=== PATIENT | female | born 1960 | race Caucasian/White ===

== ENCOUNTER 2020-06-01 19:58 | Emergency (ER) | payer MEDICAID ==
[~2020-06-01] VITALS: Ht 152.4 cm; Wt 72.6 kg
[~2020-06-01 19:58] MED LIST: HYDR-531 PO
[2020-06-01 20:41] VITALS: BP 168/88
[2020-06-01] MEDS ORDERED: CLINDAMYCIN HCL 150 MG CAP PO ONE (22:30)
[2020-06-01] MEDS ORDERED: HYDROcodone-ACET 10/325MG TAB PO ONE (22:30)
== END 2020-06-01 23:48 | disposition home or self-care (01) ==
LOC: ER 19:58
DX: K05.219 Aggressive periodontitis, localized, unspecified severity (principal); I12.9 Hypertensive chronic kidney disease with stage 1 through stage 4 chronic kidney disease, or unspecified chronic kidney disease; E11.22 Type 2 diabetes mellitus with diabetic chronic kidney disease; N18.9 Chronic kidney disease, unspecified; J45.909 Unspecified asthma, uncomplicated; M19.90 Unspecified osteoarthritis, unspecified site; F17.210 Nicotine dependence, cigarettes, uncomplicated

== ENCOUNTER 2020-08-03 22:26 | Emergency (ER) | payer MEDICAID ==
[~2020-08-03] VITALS: Ht 152.4 cm; Wt 72.6 kg
[2020-08-03] MEDS ORDERED: HYDROcodone-ACET 10/325MG TAB PO ONE (23:00)
[2020-08-04 00:14] LABS: Basophils # (auto) 0 10 ^3/uL (0-0.2); Basophils % (auto) 0.3 % (0.0-2.0); Eosinophils # (auto) 0.1 10 ^3/uL (0-0.8); Eosinophils % (auto) 1.6 % (0.0-7.0); Hematocrit 33.2 % (36.0-46.0); Hemoglobin 11.2 g/dL (12.2-16.2); Lymphocytes % (auto) 12.5 % (10.0-50.0); Mean Corpuscular Hemoglobin 32.3 pg (28.0-32.0); Mean Corpuscular Hgb Conc. 33.8 g/dL (32.0-36.0); Mean Corpuscular Volume 95.5 fL (80.0-100.0); Monocytes # (auto) 0.3 10 ^3/uL (0-1.3); Monocytes % (auto) 3.4 % (0.0-12.0); Neutrophils # (auto) 6.8 10 ^3/uL (1.6-8.6); Neutrophils % (auto) 82.2 % (37.0-80.0); Nucleated Red Blood Cells % 0.1 %; Platelet Count (auto) 165 10^3/uL (140-450); Red Blood Cells 3.48 10^6/uL (4.0-5.20); Red Cell Distribution Width 14.5 % (11.8-14.3); White Blood Cell 8.3 10^3/uL (4.4-10.8)
[2020-08-04 00:37] LABS: Albumin 3.4 g/dL (3.4-5.0); Calcium 8.4 mg/dL (8.5-10.1); Potassium 4.6 mmol/L (3.5-5.1)
[2020-08-04 00:39] LABS: Bilirubin, Total 0.4 mg/dL (0.2-1.0); Total Protein 7.3 g/dL (6.4-8.2)
[2020-08-04 00:49] LABS: BUN/Creatinine Ratio 6.4
[2020-08-04] MEDS ORDERED: MORPHINE SULFATE 4 MG/ML SYR/VIAL IV ONE (01:00)
[2020-08-04] MEDS ORDERED: cloNIDine HCL 0.1 MG TAB PO ONE (01:00)
[2020-08-04] MEDS ORDERED: TETANUS-DIPTH-ACEL PERTUSSIS 0.5ML SYR Tdap IM ONE (01:00)
[2020-08-04] MEDS ORDERED: InsuLIN REG 1unit/0.01ml Soln (100units/ml) IV ONE (01:00)
[2020-08-04] MEDS ORDERED: cefTRIAXone 1GM/50ML D5W 50 ML IV ONE (01:00)
[2020-08-04 02:22] VITALS: BP 191/79
== END 2020-08-04 03:27 | disposition home or self-care (01) ==
LOC: ER 22:26 → EDBD 22:26 → ER 08-04 03:27
DX: S16.1XXA Strain of muscle, fascia and tendon at neck level, initial encounter (principal); S86.812A Strain of other muscle(s) and tendon(s) at lower leg level, left leg, initial encounter; S09.8XXA Other specified injuries of head, initial encounter; J45.909 Unspecified asthma, uncomplicated; J44.9 Chronic obstructive pulmonary disease, unspecified; E11.22 Type 2 diabetes mellitus with diabetic chronic kidney disease; N18.9 Chronic kidney disease, unspecified; F17.210 Nicotine dependence, cigarettes, uncomplicated; Z79.899 Other long term (current) drug therapy; V49.59XA Passenger injured in collision with other motor vehicles in traffic accident, initial encounter; Y93.89 Activity, other specified; Y92.488 Other paved roadways as the place of occurrence of the external cause; Y99.8 Other external cause status
CPT/HCPCS: 36415; 70450; 70486; 72125; 73562; 80053; 82010; 82962; 85025; 90471; 90715; 96365; 96375; 99285; J0696; J1815; J2270

== ENCOUNTER 2021-07-04 19:35 | Inpatient (IN) | payer MEDICAID ==
[~2021-07-04] VITALS: Ht 152.4 cm; Wt 72.0 kg
[2021-07-04] MEDS ORDERED: cloNIDine HCL 0.1 MG TAB ONE (20:09)
[2021-07-04] MEDS ORDERED: cloNIDine HCL 0.1 MG TAB PO ONE (20:15)
[2021-07-04 22:14] LABS: Basophils # (auto) 0 10 ^3/uL (0-0.2); Basophils % (auto) 0.6 % (0.0-2.0); Eosinophils # (auto) 0.2 10 ^3/uL (0-0.8); Eosinophils % (auto) 2.5 % (0.0-7.0); Hemoglobin 11.6 g/dL (12.2-16.2); Lymphocytes # (auto) 0.9 10 ^3/uL (0.4-5.4); Lymphocytes % (auto) 14.6 % (10.0-50.0); Mean Corpuscular Hemoglobin 31.7 pg (28.0-32.0); Mean Corpuscular Volume 95.8 fL (80.0-100.0); Monocytes # (auto) 0.3 10 ^3/uL (0-1.3); Monocytes % (auto) 5.2 % (0.0-12.0); Neutrophils % (auto) 77.1 % (37.0-80.0); Nucleated Red Blood Cells % 0.1 %; Red Blood Cells 3.65 10^6/uL (4.0-5.20); Red Cell Distribution Width 17.3 % (11.8-14.3); White Blood Cell 6.4 10^3/uL (4.4-10.8)
[2021-07-04 22:29] LABS: Albumin 3.2 g/dL (3.4-5.0); Anion Gap 14 (5-15); Blood Urea Nitrogen 53 mg/dL (7-18); Carbon Dioxide 21 mmol/L (21-32); Chloride 103 mmol/L (98-107); Glucose 200 mg/dL (74-106); Sodium 138 mmol/L (136-145)
[2021-07-04 22:31] LABS: Alanine Aminotransferase 28 U/L (13-56); Aspartate Aminotransferase 17 U/L (15-37); GFR African American 8 mL/min; GFR Non-African American 7 mL/min; INR 1.07 (0.9-1.15); Partial Thromboplastin Time 27.3 sec (23.6-33.0)
[2021-07-04 22:36] LABS: Alkaline Phosphatase 214 U/L (45-117); Bilirubin, Total 0.5 mg/dL (0.2-1.0); Total Protein 7.5 g/dL (6.4-8.2)
[2021-07-04] MEDS ORDERED: ACETAMINOPHEN 325 MG TAB PO ONE (23:00)
[2021-07-04 23:05] LABS: Potassium 6.1 mmol/L (3.5-5.1)
[2021-07-05] MEDS ORDERED: HYDROcodone-ACET 10/325MG TAB PO ONE (02:15)
[2021-07-05 03:03] LABS: Urine Bacteria NONE SEEN /hpf (None Seen); Urine Blood 1+ /uL (Negative); Urine Hyaline Cast FEW /lpf (0 - 2); Urine Specific Gravity 1.011 (1.001-1.035); Urine WBC 23 /hpf (0 - 5); Urine WBC Clumps PRESENT /hpf (None Seen)
[2021-07-05] MEDS ORDERED: DOCUSATE SOD 100 MG CAP PO PRN (04:00)
[2021-07-05] MEDS ORDERED: ACETAMINOPHEN 325 MG TAB PO PRN (04:00)
[2021-07-05] MEDS ORDERED: SODIUM BICARBONATE 8.4% INJ 50ML SYRINGE IV ONE (04:00)
[2021-07-05] MEDS ORDERED: SODIUM ZIRCONIUM CYCL 10 GM PAK PO ONE (04:00)
[2021-07-05] MEDS ORDERED: MORPHINE SULFATE INJECTION 2 MG/ML SYRG IV PRN (04:00)
[2021-07-05] MEDS ORDERED: ONDANSETRON HCL 4 MG/2 ML VIAL IV PRN (04:00)
[2021-07-05] MEDS ORDERED: NITROGLYCERIN 0.4 MG SL TAB SL PRN (04:00)
[2021-07-05] MEDS ORDERED: DEXTROSE (50%) 50ML SYRG IV PRN (04:00)
[2021-07-05] MEDS ORDERED: hydrALAZINE HCL 20 MG/ML VL IV PRN (04:00)
[2021-07-05 05:26] LABS: Basophils # (auto) 0 10 ^3/uL (0-0.2); Basophils % (auto) 0.5 % (0.0-2.0); Eosinophils # (auto) 0.2 10 ^3/uL (0-0.8); Eosinophils % (auto) 2.7 % (0.0-7.0); Hematocrit 35.9 % (36.0-46.0); Hemoglobin 11.8 g/dL (12.2-16.2); Lymphocytes # (auto) 1.1 10 ^3/uL (0.4-5.4); Mean Corpuscular Hemoglobin 31.6 pg (28.0-32.0); Mean Corpuscular Hgb Conc. 32.7 g/dL (32.0-36.0); Mean Corpuscular Volume 96.4 fL (80.0-100.0); Monocytes # (auto) 0.4 10 ^3/uL (0-1.3); Neutrophils # (auto) 6.3 10 ^3/uL (1.6-8.6); Neutrophils % (auto) 77.8 % (37.0-80.0); Nucleated Red Blood Cells % 0.1 %; Red Blood Cells 3.73 10^6/uL (4.0-5.20)
[2021-07-05 05:57] LABS: Albumin 3.5 g/dL (3.4-5.0); BUN/Creatinine Ratio 8.7; Bilirubin, Total 0.6 mg/dL (0.2-1.0); Calcium 8.5 mg/dL (8.5-10.1)
[2021-07-05] MEDS: ALBUTEROL SULF HFA 90MCG INH 200DOSE IN SCH ×2 (06:00→13:48)
[2021-07-05] MEDS: SODIUM CHLOR 0.9% PF (SALINE LOCK) 10ML VIAL/SYR IV SCH ×3 (06:00→21:40)
[2021-07-05] MEDS: hydrALAZINE HCL 25 MG TAB PO SCH ×3 (06:02→21:31)
[2021-07-05] MEDS: ACCU-CHEK COMFORT CURVE STRIP VI SCH ×4 (06:08→21:40)
[2021-07-05] MEDS: InsuLIN REG 1unit/0.01ml Soln (100units/ml) SC SCH ×3 (06:08→17:00)
[2021-07-05 06:10] LABS: Potassium 6.4 mmol/L (3.5-5.1)
[2021-07-05 07:12] VITALS: BP 122/73
[2021-07-05] MEDS: SEVELAMER 800 MG TAB PO SCH ×3 (08:00→18:00)
[2021-07-05] MEDS: cefTRIAXone 1GM/50ML D5W 50 ML IV SCH (09:00)
[2021-07-05] MEDS: HYDROcodone-ACET 5/325MG TAB PO PRN ×2 (10:00→15:00)
[2021-07-05] MEDS: NIFEdipine ER 30 MG TAB PO SCH (10:00)
[2021-07-05] MEDS ORDERED: FAMOTIDINE (10MG/ML) 2ML VL IV SCH (10:00)
[2021-07-05] MEDS: AZITHROMYCIN 500MG/ 250ML 250 ML IV SCH ×2 (10:24→10:30)
[2021-07-05] MEDS: HEPARIN SODIUM (PORCINE) 5000 UNITS/ML 1ML VIAL SC SCH ×2 (10:24→21:34)
[2021-07-05] MEDS: B-COMPLEX W/ C & FOLIC ACID(NEPHROVITE TAB) PO SCH (10:25)
[2021-07-05] MEDS: ASCORBIC ACID 500 MG TAB PO SCH ×2 (10:25→21:30)
[2021-07-05] MEDS: FUROSEMIDE 40 MG/4 ML VIAL IV SCH (10:27)
[2021-07-05] MEDS: ZINC SULFATE 220mg CAP or TAB PO SCH (10:27)
[2021-07-05] MEDS: ASPirin 81 mg TAB PO SCH (10:27)
[2021-07-05] MEDS ORDERED: diphenhdrAMINE HCL 50 MG/1 ML VL ONE (13:09)
[2021-07-05] MEDS ORDERED: diphenhdrAMINE HCL 50 MG/1 ML VL IV PRN (13:15)
[2021-07-05] MEDS ORDERED: LISI20TA28 PO (13:37)
[2021-07-05] MEDS ORDERED: ASPI1TAB19 PO (13:37)
[2021-07-05] MEDS ORDERED: SEVE800T10 PO (13:37)
[2021-07-05] MEDS ORDERED: RIFA550T PO (13:37)
[2021-07-05] MEDS ORDERED: FURO40TA4 PO (13:37)
[2021-07-05] MEDS ORDERED: SODIUM CHL 0.9% 1000 ML BAG XX ONE (13:45)
[2021-07-05] MEDS ORDERED: FAMO-12 PO (13:47)
[2021-07-05] MEDS ORDERED: ALBU108A5 INH (13:47)
[2021-07-05] MEDS ORDERED: HYDR-4798 PO (13:47)
[2021-07-05] MEDS ORDERED: NIFE1TAB30 PO (13:47)
[2021-07-05] MEDS ORDERED: FERR325T20 PO (13:47)
[2021-07-05] MEDS ORDERED: ALOG1TAB2 PO (13:47)
[2021-07-05] MEDS ORDERED: BENZ100C97 PO (13:47)
[2021-07-05] MEDS ORDERED: CLON0.1T PO (13:47)
[2021-07-05] MEDS ORDERED: BUDE1AER4 PO (13:47)
[2021-07-05] MEDS ORDERED: DIP25C PO (13:47)
[2021-07-05] MEDS ORDERED: ALBUTEROL SULF 2.5 MG/0.5ML(0.5%) NEB SOLN NEB PRN (15:45)
[2021-07-05 17:28] VITALS: BP 165/105
[2021-07-05 22:00] VITALS: BP 168/72
[2021-07-05] MEDS ORDERED: InsuLIN REG 1unit/0.01ml Soln (100units/ml) SC SCH (22:00)
[2021-07-06 05:00] VITALS: BP 174/69
[2021-07-06] MEDS: hydrALAZINE HCL 25 MG TAB PO SCH (05:27)
[2021-07-06] MEDS: HYDROcodone-ACET 5/325MG TAB PO PRN (05:27)
[2021-07-06] MEDS: SODIUM CHLOR 0.9% PF (SALINE LOCK) 10ML VIAL/SYR IV SCH (05:28)
[2021-07-06 06:37] LABS: Albumin 3.1 g/dL (3.4-5.0); Calcium 8.1 mg/dL (8.5-10.1); Magnesium 2.4 mg/dL (1.6-2.6); Potassium 4.7 mmol/L (3.5-5.1)
[2021-07-06 06:42] LABS: BUN/Creatinine Ratio 6.3; Bilirubin, Total 0.7 mg/dL (0.2-1.0); Total Protein 7.6 g/dL (6.4-8.2)
[2021-07-06 07:03] LABS: Basophils # (auto) 0 10 ^3/uL (0-0.2); Basophils % (auto) 0.4 % (0.0-2.0); Eosinophils # (auto) 0.1 10 ^3/uL (0-0.8); Eosinophils % (auto) 2.1 % (0.0-7.0); Hematocrit 37.9 % (36.0-46.0); Hemoglobin 12.3 g/dL (12.2-16.2); Lymphocytes # (auto) 0.7 10 ^3/uL (0.4-5.4); Lymphocytes % (auto) 9.5 % (10.0-50.0); Mean Corpuscular Hemoglobin 31.8 pg (28.0-32.0); Mean Corpuscular Hgb Conc. 32.4 g/dL (32.0-36.0); Mean Corpuscular Volume 98.2 fL (80.0-100.0); Monocytes # (auto) 0.4 10 ^3/uL (0-1.3); Neutrophils # (auto) 5.8 10 ^3/uL (1.6-8.6); Red Blood Cells 3.86 10^6/uL (4.0-5.20); Red Cell Distribution Width 17.4 % (11.8-14.3); White Blood Cell 7.1 10^3/uL (4.4-10.8)
[2021-07-06] MEDS: InsuLIN REG 1unit/0.01ml Soln (100units/ml) SC SCH (07:05)
[2021-07-06] MEDS: ACCU-CHEK COMFORT CURVE STRIP VI SCH (07:10)
[2021-07-06] MEDS: SEVELAMER 800 MG TAB PO SCH (08:47)
[2021-07-06 09:00] VITALS: BP 162/75
[2021-07-06] MEDS ORDERED: LEVO750T64 PO (09:36)
[2021-07-06] MEDS ORDERED: FAMOTIDINE (10MG/ML) 2ML VL IV SCH (10:00)
[2021-07-06] MEDS: ASCORBIC ACID 500 MG TAB PO SCH (10:32)
[2021-07-06] MEDS: AZITHROMYCIN 500MG/ 250ML 250 ML IV SCH (10:33)
[2021-07-06] MEDS: ZINC SULFATE 220mg CAP or TAB PO SCH (10:33)
[2021-07-06] MEDS: B-COMPLEX W/ C & FOLIC ACID(NEPHROVITE TAB) PO SCH (10:33)
[2021-07-06] MEDS: ASPirin 81 mg TAB PO SCH (10:33)
[2021-07-06] MEDS: cefTRIAXone 1GM/50ML D5W 50 ML IV SCH (10:34)
[2021-07-06] MEDS: NIFEdipine ER 30 MG TAB PO SCH (10:35)
[2021-07-06] MEDS: FUROSEMIDE 40 MG/4 ML VIAL IV SCH (10:35)
[2021-07-06] MEDS: HEPARIN SODIUM (PORCINE) 5000 UNITS/ML 1ML VIAL SC SCH (10:38)
[2021-07-06 10:53] VITALS: BP 162/73
== END 2021-07-06 11:50 | disposition home or self-care (01) | DRG 425 ==
LOC: EDBD 19:35 → ER 19:35 → TELE 07-05 04:02 → TELE-CENTR 07-05 16:58
PROVIDERS: ADMIT Nurse Practitioner Family; ATTEND Internal Medicine Pulmonary Disease
PROC: 5A1D70Z Performance of Urinary Filtration, Intermittent, Less than 6 Hours Per Day (ICD-10-PCS; principal; 2021-07-05)
DX: E87.5 Hyperkalemia (principal); J96.21 Acute and chronic respiratory failure with hypoxia; I50.31 Acute diastolic (congestive) heart failure; J18.9 Pneumonia, unspecified organism; N18.6 End stage renal disease; I12.0 Hypertensive chronic kidney disease with stage 5 chronic kidney disease or end stage renal disease; J44.0 Chronic obstructive pulmonary disease with (acute) lower respiratory infection; E11.22 Type 2 diabetes mellitus with diabetic chronic kidney disease; I13.2 Hypertensive heart and chronic kidney disease with heart failure and with stage 5 chronic kidney disease, or end stage renal disease; E87.8 Other disorders of electrolyte and fluid balance, not elsewhere classified; N39.0 Urinary tract infection, site not specified; E11.65 Type 2 diabetes mellitus with hyperglycemia; Z20.822 Contact with and (suspected) exposure to COVID-19; Z87.891 Personal history of nicotine dependence; Z99.2 Dependence on renal dialysis
CPT/HCPCS: 36415; 71045; 80053; 81001; 82962; 83036; 83735; 83880; 84132; 84484; 85025; 85379; 85610; 85730; 87086; 87426; 90935; 93005; 93306; 96365; 96375; G0378; J0696; J1815; J2405; J3490

== ENCOUNTER 2021-09-11 01:12 | Emergency (ER) | payer MEDICAID ==
[~2021-09-11] VITALS: Ht 152.4 cm; Wt 72.6 kg
[~2021-09-11 01:12] MED LIST changes: +ALBU108A5 INH; +ALOG1TAB2 PO; +ASPI1TAB19 PO; +BENZ100C97 PO; +BUDE1AER4 PO; +CLON0.1T PO; +DIP25C PO; +FAMO-12 PO; +FERR325T20 PO; +FURO40TA4 PO; +HYDR-4798 PO; -HYDR-531 PO; +LEVO750T64 PO; +LISI20TA28 PO; +NIFE1TAB30 PO; +RIFA550T PO; +SEVE800T10 PO
[2021-09-11] MEDS ORDERED: cloNIDine HCL 0.1 MG TAB PO ONE (01:30)
[2021-09-11] MEDS ORDERED: MORPHINE SULFATE INJECTION 2 MG/ML SYRG IM ONE (04:30)
[2021-09-11 04:41] VITALS: BP 155/64
== END 2021-09-11 04:48 | disposition home or self-care (01) ==
LOC: ER 01:15
DX: H61.22 Impacted cerumen, left ear (principal); E66.9 Obesity, unspecified; E11.22 Type 2 diabetes mellitus with diabetic chronic kidney disease; N18.6 End stage renal disease; J44.9 Chronic obstructive pulmonary disease, unspecified; Z68.31 Body mass index [BMI] 31.0-31.9, adult; Z87.891 Personal history of nicotine dependence; Z79.82 Long term (current) use of aspirin; Z79.899 Other long term (current) drug therapy; Z79.2 Long term (current) use of antibiotics
CPT/HCPCS: 69209; 96372; 99283; J2270

== ENCOUNTER 2022-03-15 01:47 | Inpatient (IN) | payer MEDICAID ==
[2022-03-15] VITALS (21 sets, daily range): BP systolic 86–252; BP diastolic 19–168
[~2022-03-15] VITALS: Ht 152.4 cm; Wt 48.6 kg
[2022-03-15 04:18] LABS: Potassium 3.9 mmol/L (3.5-5.1)
[2022-03-15 04:20] LABS: Basophils # (auto) 0 10 ^3/uL (0-0.2); Basophils % (auto) 0.6 % (0.0-2.0); Eosinophils # (auto) 0.1 10 ^3/uL (0-0.8); Eosinophils % (auto) 1.2 % (0.0-7.0); Hemoglobin 7.6 g/dL (12.2-16.2); Monocytes # (auto) 0.3 10 ^3/uL (0-1.3); Neutrophils # (auto) 6.4 10 ^3/uL (1.6-8.6)
[2022-03-15 04:22] LABS: Hematocrit 22.6 % (36.0-46.0); Lymphocytes # (auto) 1.1 10 ^3/uL (0.4-5.4); Lymphocytes % (auto) 13.3 % (10.0-50.0); Mean Corpuscular Hemoglobin 31.1 pg (28.0-32.0); Mean Corpuscular Hgb Conc. 33.5 g/dL (32.0-36.0); Mean Corpuscular Volume 92.8 fL (80.0-100.0); Monocytes % (auto) 3.6 % (0.0-12.0); Neutrophils % (auto) 81.3 % (37.0-80.0); Red Blood Cells 2.43 10^6/uL (4.0-5.20); White Blood Cell 7.9 10^3/uL (4.4-10.8)
[2022-03-15 04:26] LABS: Albumin 2.6 g/dL (3.4-5.0); BUN/Creatinine Ratio 4.3; Bilirubin, Total 0.5 mg/dL (0.2-1.0); Calcium 7.8 mg/dL (8.5-10.1); Magnesium 2.3 mg/dL (1.6-2.6); Phosphorus 3.8 mg/dL (2.5-4.90); Total Protein 6.6 g/dL (6.4-8.2)
[2022-03-15] MEDS ORDERED: InsuLIN REG 1unit/0.01ml Soln (100units/ml) IV STA (05:51)
[2022-03-15] MEDS ORDERED: InsuLIN REG 1unit/0.01ml Soln (100units/ml) IV ONE (07:00)
[2022-03-15] MEDS ORDERED: HYDROcodone-ACET 5/325MG TAB PO ONE (08:00)
[2022-03-15] MEDS ORDERED: InsuLIN REG 1unit/0.01ml Soln (100units/ml) SC ONE (08:00)
[2022-03-15] MEDS ORDERED: LABETALOL HCL 5 MG/ML 4ML SYRINGE IV ONE (08:15)
[2022-03-15] MEDS ORDERED: hydrALAZINE HCL 20 MG/ML VL IV PRN (10:15)
[2022-03-15] MEDS ORDERED: ONDANSETRON HCL 4 MG/2 ML VIAL IV PRN (10:15)
[2022-03-15] MEDS ORDERED: NICOTINE 7MG/24HR TOPICAL PATCH TD ONE (10:15)
[2022-03-15] MEDS ORDERED: DEXTROSE (50%) 50ML SYRG IV PRN (10:15)
[2022-03-15 10:32] LABS: Cholesterol 91 mg/dL (< 200); HDL Cholesterol 61 mg/dL (40-59); LDL Cholesterol 23 mg/dL (< 100); Triglycerides 70 mg/dL (< 150)
[2022-03-15] MEDS ORDERED: FUROSEMIDE 40 MG/4 ML VIAL IV ONE (11:15)
[2022-03-15] MEDS: InsuLIN REG 1unit/0.01ml Soln (100units/ml) SC SCH ×2 (12:00→17:36)
[2022-03-15] MEDS: SEVELAMER 800 MG TAB PO SCH ×2 (12:00→18:00)
[2022-03-15] MEDS: ACCU-CHEK COMFORT CURVE STRIP VI SCH ×2 (12:00→17:36)
[2022-03-15 13:12] LABS: Cholesterol 83 mg/dL (< 200)
[2022-03-15 13:15] LABS: HDL Cholesterol 65 mg/dL (40-59); LDL Cholesterol 18 mg/dL (< 100); Triglycerides 58 mg/dL (< 150)
[2022-03-15] MEDS ORDERED: PATIENTS OWN MEDICATION (Sevelamer Carbonate 2 TAB) PO SCH (14:00)
[2022-03-15] MEDS ORDERED: SUCCINYLCHOLINE CHLORIDE 20 MG/ML 10ML VIAL IV ONE (18:46)
[2022-03-15] MEDS ORDERED: ETOMIDATE (2MG/ML) 20ML VIAL IV ONE (18:46)
[2022-03-15] MEDS ORDERED: fentaNYL Drip 2500mCg/250mlNS 250 ML IV ONE (19:06)
[2022-03-15] MEDS: fentaNYL Drip 2500mCg/250mlNS 250 ML IV SCH (19:15)
[2022-03-15] MEDS: PROPOFOL 100 ML IV SCH (19:15)
[2022-03-15] MEDS: MIDAZOLAM DRIP 50 mg/50mL 50 ML IV SCH (19:15)
[2022-03-15] MEDS: NOREPINEPHRINE 8 MG/250ML KIT 250 ML IV SCH (19:55)
[2022-03-15] MEDS: FERROUS SULFATE 325mg EC TAB PO SCH (22:00)
[2022-03-15] MEDS ORDERED: PATIENTS OWN MEDICATION (Ferrous Sulfate (Ferosul) 1 TAB) PO SCH (22:00)
[2022-03-15] MEDS: HEPARIN SODIUM (PORCINE) 5000 UNITS/ML 1ML VIAL SC SCH (23:24)
[2022-03-16] VITALS (94 sets, daily range): BP systolic 60–163; BP diastolic 10–160
[2022-03-16] MEDS: PROPOFOL 100 ML IV SCH ×3 (00:13→22:28)
[2022-03-16] MEDS: ACCU-CHEK COMFORT CURVE STRIP VI SCH ×5 (00:29→23:49)
[2022-03-16] MEDS: InsuLIN REG 1unit/0.01ml Soln (100units/ml) SC SCH ×4 (00:49→18:26)
[2022-03-16 03:48] LABS: Basophils # (auto) 0.1 10 ^3/uL (0-0.2); Eosinophils # (auto) 0.3 10 ^3/uL (0-0.8); Hematocrit 21.3 % (36.0-46.0)
[2022-03-16 03:50] LABS: Basophils % (auto) 0.9 % (0.0-2.0); Hemoglobin 7.5 g/dL (12.2-16.2); Mean Corpuscular Hemoglobin 31.4 pg (28.0-32.0); Mean Corpuscular Volume 89.6 fL (80.0-100.0); Monocytes # (auto) 0.5 10 ^3/uL (0-1.3); Monocytes % (auto) 4.2 % (0.0-12.0); Neutrophils # (auto) 9.1 10 ^3/uL (1.6-8.6); Neutrophils % (auto) 69.9 % (37.0-80.0); Red Blood Cells 2.38 10^6/uL (4.0-5.20); Red Cell Distribution Width 13.8 % (11.8-14.3)
[2022-03-16 04:12] LABS: Potassium 3.1 mmol/L (3.5-5.1)
[2022-03-16 04:18] LABS: Albumin 2.2 g/dL (3.4-5.0); BUN/Creatinine Ratio 4.7; Bilirubin, Total 0.4 mg/dL (0.2-1.0); Calcium 7.6 mg/dL (8.5-10.1); Total Protein 6.1 g/dL (6.4-8.2)
[2022-03-16] MEDS: SEVELAMER 800 MG TAB PO SCH ×3 (08:09→18:06)
[2022-03-16] MEDS: NICOTINE 7MG/24HR TOPICAL PATCH TD SCH (10:00)
[2022-03-16] MEDS: NIFEdipine ER 30 MG TAB PO SCH (10:00)
[2022-03-16] MEDS: LISINOPRIL 20 MG TAB PO SCH (10:00)
[2022-03-16] MEDS: FUROSEMIDE 40 MG/4 ML VIAL IV SCH (10:00)
[2022-03-16] MEDS ORDERED: PATIENTS OWN MEDICATION (Nifedipine (Nifedipine Er) 1 TAB) PO SCH (10:00)
[2022-03-16] MEDS: FERROUS SULFATE 325mg EC TAB PO SCH ×2 (10:25→22:29)
[2022-03-16] MEDS: HEPARIN SODIUM (PORCINE) 5000 UNITS/ML 1ML VIAL SC SCH ×2 (10:26→22:29)
[2022-03-16] MEDS ORDERED: VANCOMYCIN PER PHARMACY 0 MG IV SCH (10:45)
[2022-03-16] MEDS ORDERED: POTASSIUM EFFERVESENT TAB 25 MEQ GT ONE (10:45)
[2022-03-16] MEDS ORDERED: VANCOMYCIN 1GM/250ML 250 ML IV ONE (12:00)
[2022-03-16] MEDS: fentaNYL Drip 2500mCg/250mlNS 250 ML IV SCH ×2 (12:09→23:19)
[2022-03-16] MEDS: NOREPINEPHRINE 8 MG/250ML KIT 250 ML IV SCH ×2 (12:43→23:20)
[2022-03-16] MEDS ORDERED: ATROPINE SULF 1 MG/10ml SYR IV PRN (15:49)
[2022-03-16 16:44] LABS: INR 1.12 (0.9-1.15); Partial Thromboplastin Time 26.1 sec (23.6-33.0)
[2022-03-16] MEDS: MIDAZOLAM DRIP 50 mg/50mL 50 ML IV SCH (19:15)
[2022-03-16] MEDS: levETIRAcetam 500 MG TAB PO SCH (22:29)
[2022-03-16] MEDS: PIPERACILLIN-TAZOB 2.25GM 50 ML IV SCH (22:30)
[2022-03-17] VITALS (103 sets, daily range): BP systolic 72–168; BP diastolic -24–59
[2022-03-17 04:24] LABS: Basophils # (auto) 0.1 10 ^3/uL (0-0.2); Eosinophils # (auto) 0.3 10 ^3/uL (0-0.8); Lymphocytes # (auto) 2.3 10 ^3/uL (0.4-5.4); Red Blood Cells 2.43 10^6/uL (4.0-5.20)
[2022-03-17 04:27] LABS: Basophils % (auto) 0.7 % (0.0-2.0); Hematocrit 21.3 % (36.0-46.0); Hemoglobin 7.6 g/dL (12.2-16.2); Lymphocytes % (auto) 13.5 % (10.0-50.0); Mean Corpuscular Hemoglobin 31.4 pg (28.0-32.0); Mean Corpuscular Hgb Conc. 35.9 g/dL (32.0-36.0); Mean Corpuscular Volume 87.6 fL (80.0-100.0); Monocytes # (auto) 0.8 10 ^3/uL (0-1.3); Monocytes % (auto) 4.6 % (0.0-12.0); Neutrophils # (auto) 13.3 10 ^3/uL (1.6-8.6); Neutrophils % (auto) 79.2 % (37.0-80.0); Red Cell Distribution Width 14.2 % (11.8-14.3); White Blood Cell 16.8 10^3/uL (4.4-10.8)
[2022-03-17 04:46] LABS: Albumin 1.9 g/dL (3.4-5.0); Calcium 7.7 mg/dL (8.5-10.1); Potassium 4.2 mmol/L (3.5-5.1)
[2022-03-17 04:49] LABS: BUN/Creatinine Ratio 4.1
[2022-03-17 04:52] LABS: Bilirubin, Total 0.6 mg/dL (0.2-1.0); Total Protein 5.5 g/dL (6.4-8.2)
[2022-03-17] MEDS: InsuLIN REG 1unit/0.01ml Soln (100units/ml) SC SCH ×4 (06:00→18:00)
[2022-03-17] MEDS: ACCU-CHEK COMFORT CURVE STRIP VI SCH ×3 (07:27→18:34)
[2022-03-17] MEDS: SEVELAMER 800 MG TAB PO SCH ×3 (08:00→12:25)
[2022-03-17] MEDS: PANTOPRAZOLE 40 MG/10 ML VIAL INJ IV SCH (09:00)
[2022-03-17] MEDS: FERROUS SULFATE 325mg EC TAB PO SCH ×2 (09:01→22:01)
[2022-03-17] MEDS: levETIRAcetam 500 MG TAB PO SCH (09:01)
[2022-03-17] MEDS: PIPERACILLIN-TAZOB 2.25GM 50 ML IV SCH ×3 (09:01→22:02)
[2022-03-17] MEDS: B-COMPLEX W/ C & FOLIC ACID(NEPHROVITE TAB) PO SCH (09:02)
[2022-03-17] MEDS: HEPARIN SODIUM (PORCINE) 5000 UNITS/ML 1ML VIAL SC SCH ×2 (09:05→22:03)
[2022-03-17] MEDS ORDERED: SODIUM CHL 0.9% 1000 ML BAG XX ONE (09:30)
[2022-03-17] MEDS ORDERED: LORazepam 2MG/ML-1ML VIAL IV ONE (09:45)
[2022-03-17] MEDS: NIFEdipine ER 30 MG TAB PO SCH (10:00)
[2022-03-17] MEDS: NICOTINE 7MG/24HR TOPICAL PATCH TD SCH (10:00)
[2022-03-17] MEDS: LISINOPRIL 20 MG TAB PO SCH (10:00)
[2022-03-17] MEDS: FUROSEMIDE 40 MG/4 ML VIAL IV SCH (10:00)
[2022-03-17] MEDS: ALBUMIN 25% 100 ML IV SCH ×2 (10:34→12:26)
[2022-03-17] MEDS: NOREPINEPHRINE 8 MG/250ML KIT 250 ML IV SCH ×2 (10:37→21:45)
[2022-03-17] MEDS: PROPOFOL 100 ML IV SCH ×2 (12:15→20:06)
[2022-03-17] MEDS: fentaNYL Drip 2500mCg/250mlNS 250 ML IV SCH (12:53)
[2022-03-17] MEDS ORDERED: DEXTROSE (50%) 50ML SYRG IV PRN (14:30)
[2022-03-17] MEDS ORDERED: VANCOMYCIN 1GM/250ML 250 ML IV ONE (16:00)
[2022-03-17] MEDS: MIDAZOLAM DRIP 50 mg/50mL 50 ML IV SCH (19:15)
[2022-03-17] MEDS ORDERED: EPOETIN ALFA-EPBX 10,000 UNIT/1ML VIAL SC ONE (21:00)
[2022-03-18] VITALS (104 sets, daily range): BP systolic 92–175; BP diastolic 17–66
[2022-03-18] MEDS: fentaNYL Drip 2500mCg/250mlNS 250 ML IV SCH (02:53)
[2022-03-18 04:42] LABS: BUN/Creatinine Ratio 2.9; Calcium 8.2 mg/dL (8.5-10.1)
[2022-03-18 04:43] LABS: Basophils # (auto) 0.1 10 ^3/uL (0-0.2); Eosinophils # (auto) 0.2 10 ^3/uL (0-0.8); Monocytes # (auto) 0.7 10 ^3/uL (0-1.3)
[2022-03-18 04:47] LABS: Basophils % (auto) 0.5 % (0.0-2.0); Eosinophils % (auto) 1.1 % (0.0-7.0); Hematocrit 19.5 % (36.0-46.0); Lymphocytes # (auto) 1.1 10 ^3/uL (0.4-5.4); Lymphocytes % (auto) 5.3 % (10.0-50.0); Mean Corpuscular Hemoglobin 30.6 pg (28.0-32.0); Mean Corpuscular Hgb Conc. 33.8 g/dL (32.0-36.0); Mean Corpuscular Volume 90.5 fL (80.0-100.0); Monocytes % (auto) 3.6 % (0.0-12.0); Neutrophils # (auto) 17.8 10 ^3/uL (1.6-8.6); Neutrophils % (auto) 89.5 % (37.0-80.0); Red Blood Cells 2.15 10^6/uL (4.0-5.20); Red Cell Distribution Width 14.7 % (11.8-14.3); White Blood Cell 19.9 10^3/uL (4.4-10.8)
[2022-03-18] MEDS: PROPOFOL 100 ML IV SCH (05:02)
[2022-03-18 05:17] LABS: Hemoglobin 6.6 g/dL (12.2-16.2)
[2022-03-18] MEDS: InsuLIN REG 1unit/0.01ml Soln (100units/ml) SC SCH ×4 (06:00→18:03)
[2022-03-18] MEDS: PIPERACILLIN-TAZOB 2.25GM 50 ML IV SCH (06:02)
[2022-03-18] MEDS: ACCU-CHEK COMFORT CURVE STRIP VI SCH ×4 (06:03→18:02)
[2022-03-18] MEDS: FERROUS SULFATE 325mg EC TAB PO SCH ×2 (10:00→22:15)
[2022-03-18] MEDS: B-COMPLEX W/ C & FOLIC ACID(NEPHROVITE TAB) PO SCH (10:00)
[2022-03-18] MEDS: PANTOPRAZOLE 40 MG/10 ML VIAL INJ IV SCH (10:00)
[2022-03-18] MEDS: HEPARIN SODIUM (PORCINE) 5000 UNITS/ML 1ML VIAL SC SCH ×2 (10:02→22:16)
[2022-03-18] MEDS ORDERED: MEROPENEM 1GM IVPB 100 ML IV SCH (14:00)
[2022-03-18] MEDS: MEROPENEM 500MG IVPB 50 ML IV SCH (15:36)
[2022-03-18] MEDS: PANTOPRAZOLE 40mg/50ML NS AE 50 ML IV SCH ×3 (15:42→23:52)
[2022-03-18] MEDS: MIDAZOLAM DRIP 50 mg/50mL 50 ML IV SCH (19:15)
[2022-03-18] MEDS: NOREPINEPHRINE 8 MG/250ML KIT 250 ML IV SCH (19:57)
[2022-03-19] VITALS (89 sets, daily range): BP systolic 84–182; BP diastolic 23–111
[2022-03-19] MEDS: ACCU-CHEK COMFORT CURVE STRIP VI SCH ×4 (00:09→18:16)
[2022-03-19] MEDS: MEROPENEM 500MG IVPB 50 ML IV SCH ×2 (01:31→14:52)
[2022-03-19] MEDS: PANTOPRAZOLE 40mg/50ML NS AE 50 ML IV SCH ×4 (01:31→22:21)
[2022-03-19 04:37] LABS: Basophils # (auto) 0.1 10 ^3/uL (0-0.2); Basophils % (auto) 0.4 % (0.0-2.0); Eosinophils # (auto) 0.4 10 ^3/uL (0-0.8); Eosinophils % (auto) 2.2 % (0.0-7.0); Hematocrit 25.8 % (36.0-46.0); Lymphocytes % (auto) 5.4 % (10.0-50.0); Mean Corpuscular Hemoglobin 30.4 pg (28.0-32.0); Mean Corpuscular Hgb Conc. 34.8 g/dL (32.0-36.0); Mean Corpuscular Volume 87.5 fL (80.0-100.0); Monocytes # (auto) 0.8 10 ^3/uL (0-1.3); Monocytes % (auto) 4.2 % (0.0-12.0); Neutrophils % (auto) 87.8 % (37.0-80.0); Red Blood Cells 2.95 10^6/uL (4.0-5.20); Red Cell Distribution Width 15.6 % (11.8-14.3); White Blood Cell 18.2 10^3/uL (4.4-10.8)
[2022-03-19 04:54] LABS: % Iron Saturation 46.2 % (15-50)
[2022-03-19 04:55] LABS: Calcium 8.4 mg/dL (8.5-10.1); Potassium 3.8 mmol/L (3.5-5.1)
[2022-03-19 05:00] LABS: BUN/Creatinine Ratio 3.7; Bilirubin, Total 1.8 mg/dL (0.2-1.0); Total Protein 5.3 g/dL (6.4-8.2)
[2022-03-19] MEDS: InsuLIN REG 1unit/0.01ml Soln (100units/ml) SC SCH ×4 (05:05→18:17)
[2022-03-19 05:17] LABS: Folate (Folic Acid) 11.27 ng/mL (5.38-24)
[2022-03-19] MEDS: B-COMPLEX W/ C & FOLIC ACID(NEPHROVITE TAB) PO SCH (10:19)
[2022-03-19] MEDS: FERROUS SULFATE 325mg EC TAB PO SCH ×2 (10:19→22:21)
[2022-03-19] MEDS: HEPARIN SODIUM (PORCINE) 5000 UNITS/ML 1ML VIAL SC SCH ×2 (10:20→22:22)
[2022-03-19] MEDS ORDERED: VANCOMYCIN 1GM/250ML 250 ML IV ONE (16:00)
[2022-03-19] MEDS: MIDAZOLAM DRIP 50 mg/50mL 50 ML IV SCH (19:15)
[2022-03-19] MEDS: ACETAMINOPHEN 325 MG TAB PO PRN (22:23)
[2022-03-20] VITALS (25 sets, daily range): BP systolic 93–162; BP diastolic 40–63
[2022-03-20] MEDS: ACCU-CHEK COMFORT CURVE STRIP VI SCH ×4 (01:49→18:13)
[2022-03-20] MEDS: MEROPENEM 500MG IVPB 50 ML IV SCH ×2 (01:51→14:30)
[2022-03-20 04:17] LABS: Basophils # (auto) 0.1 10 ^3/uL (0-0.2); Basophils % (auto) 0.5 % (0.0-2.0); Eosinophils # (auto) 0.2 10 ^3/uL (0-0.8); Eosinophils % (auto) 1.6 % (0.0-7.0); Hematocrit 24.5 % (36.0-46.0); Hemoglobin 8.6 g/dL (12.2-16.2); Lymphocytes # (auto) 1.1 10 ^3/uL (0.4-5.4); Lymphocytes % (auto) 10.1 % (10.0-50.0); Mean Corpuscular Hemoglobin 30.8 pg (28.0-32.0); Mean Corpuscular Volume 88.1 fL (80.0-100.0); Monocytes # (auto) 0.4 10 ^3/uL (0-1.3); Monocytes % (auto) 3.5 % (0.0-12.0); Neutrophils # (auto) 9.4 10 ^3/uL (1.6-8.6); Neutrophils % (auto) 84.3 % (37.0-80.0); Red Blood Cells 2.78 10^6/uL (4.0-5.20); Red Cell Distribution Width 15.7 % (11.8-14.3); White Blood Cell 11.1 10^3/uL (4.4-10.8)
[2022-03-20] MEDS: ACETAMINOPHEN 325 MG TAB PO PRN ×3 (04:23→20:57)
[2022-03-20] MEDS: PANTOPRAZOLE 40mg/50ML NS AE 50 ML IV SCH ×2 (05:04)
[2022-03-20] MEDS: InsuLIN REG 1unit/0.01ml Soln (100units/ml) SC SCH ×4 (05:05→18:14)
[2022-03-20 05:37] LABS: BUN/Creatinine Ratio 3.1; Calcium 8.3 mg/dL (8.5-10.1); Magnesium 1.8 mg/dL (1.6-2.6); Potassium 3.3 mmol/L (3.5-5.1)
[2022-03-20 08:44] LABS: Hepatitis B Surface Antibody Positive (Negative)
[2022-03-20] MEDS ORDERED: MAGNESIUM SULFATE 1GM/100ML 100 ML IV ONE (09:15)
[2022-03-20 09:21] LABS: Hepatitis A Total Antibody Positive (Negative)
[2022-03-20] MEDS: POTASSIUM CHL 20MEQ/100ML 100 ML IV SCH ×2 (09:22→11:32)
[2022-03-20] MEDS: FERROUS SULFATE 325mg EC TAB PO SCH ×2 (10:00→22:22)
[2022-03-20] MEDS: B-COMPLEX W/ C & FOLIC ACID(NEPHROVITE TAB) PO SCH (10:00)
[2022-03-20] MEDS: HEPARIN SODIUM (PORCINE) 5000 UNITS/ML 1ML VIAL SC SCH ×2 (10:08→22:23)
[2022-03-20 12:54] LABS: Hepatitis C Antibody Negative (Negative)
[2022-03-20 13:09] LABS: Hepatitis C Antibody Negative (Negative)
[2022-03-20 13:10] LABS: Hepatitis A Ab IgM Negative
[2022-03-20] MEDS: HYDROcodone-ACET 5/325MG TAB PO PRN ×2 (15:51→22:22)
[2022-03-20] MEDS: FLORASTOR (S. BOULARDII) 250 MG CAP PO SCH (15:51)
[2022-03-20 16:11] LABS: Hepatitis B Core IgM Negative
[2022-03-21] VITALS (7 sets, daily range): BP systolic 94–164; BP diastolic 51–77
[2022-03-21] MEDS: ACCU-CHEK COMFORT CURVE STRIP VI SCH ×5 (00:06→23:29)
[2022-03-21] MEDS: InsuLIN REG 1unit/0.01ml Soln (100units/ml) SC SCH ×5 (00:08→23:30)
[2022-03-21] MEDS: ALBUTEROL SULF 2.5 MG/0.5ML(0.5%) NEB SOLN NEB PRN ×4 (00:33→21:18)
[2022-03-21] MEDS: MEROPENEM 500MG IVPB 50 ML IV SCH ×2 (02:46→14:12)
[2022-03-21] MEDS: ACETAMINOPHEN 325 MG TAB PO PRN ×2 (05:32→21:38)
[2022-03-21] MEDS ORDERED: SODIUM CHL 0.9% 1000 ML BAG XX ONE (07:45)
[2022-03-21 09:26] LABS: Basophils # (auto) 0.1 10 ^3/uL (0-0.2); Basophils % (auto) 0.9 % (0.0-2.0); Eosinophils # (auto) 0.2 10 ^3/uL (0-0.8); Hemoglobin 8.2 g/dL (12.2-16.2); Monocytes # (auto) 0.3 10 ^3/uL (0-1.3)
[2022-03-21 09:27] LABS: Hematocrit 23.7 % (36.0-46.0); Lymphocytes % (auto) 16.7 % (10.0-50.0); Mean Corpuscular Hgb Conc. 34.7 g/dL (32.0-36.0); Mean Corpuscular Volume 89.5 fL (80.0-100.0); Neutrophils # (auto) 4.3 10 ^3/uL (1.6-8.6); Neutrophils % (auto) 74.4 % (37.0-80.0); Nucleated Red Blood Cells % 0.1 %; Red Blood Cells 2.65 10^6/uL (4.0-5.20); Red Cell Distribution Width 15.9 % (11.8-14.3); White Blood Cell 5.8 10^3/uL (4.4-10.8)
[2022-03-21] MEDS: FLORASTOR (S. BOULARDII) 250 MG CAP PO SCH (09:32)
[2022-03-21] MEDS: FERROUS SULFATE 325mg EC TAB PO SCH ×2 (09:32→21:25)
[2022-03-21] MEDS: PANTOPRAZOLE 40 MG TAB PO SCH (09:32)
[2022-03-21] MEDS: B-COMPLEX W/ C & FOLIC ACID(NEPHROVITE TAB) PO SCH (09:32)
[2022-03-21 09:46] LABS: BUN/Creatinine Ratio 3.6; Calcium 8.1 mg/dL (8.5-10.1); Potassium 3.6 mmol/L (3.5-5.1)
[2022-03-21] MEDS: HYDROcodone-ACET 5/325MG TAB PO PRN ×2 (11:00→16:12)
[2022-03-21] MEDS: HEPARIN SODIUM (PORCINE) 5000 UNITS/ML 1ML VIAL SC SCH ×2 (16:13→21:28)
[2022-03-21] MEDS ORDERED: LORazepam 2MG/ML-1ML VIAL IV PRN (16:15)
[2022-03-21] MEDS ORDERED: VANCOMYCIN 500 MG in D5W 5% 100 ML IV ONE (17:00)
[2022-03-21] MEDS ORDERED: EPOETIN ALFA-EPBX 10,000 UNIT/1ML VIAL SC ONE (21:00)
[2022-03-21] MEDS: metroNIDAZOLE 500 MG TAB PO SCH (21:25)
[2022-03-22] MEDS: HYDROcodone-ACET 5/325MG TAB PO PRN ×3 (01:50→21:27)
[2022-03-22] MEDS: MEROPENEM 500MG IVPB 50 ML IV SCH (01:51)
[2022-03-22 04:48] VITALS: BP 149/57
[2022-03-22] MEDS: metroNIDAZOLE 500 MG TAB PO SCH ×3 (05:53→21:28)
[2022-03-22] MEDS: InsuLIN REG 1unit/0.01ml Soln (100units/ml) SC SCH ×3 (05:58→18:21)
[2022-03-22] MEDS: ACCU-CHEK COMFORT CURVE STRIP VI SCH ×3 (05:58→18:21)
[2022-03-22 07:30] VITALS: BP 131/26
[2022-03-22] MEDS: FERROUS SULFATE 325mg EC TAB PO SCH ×2 (08:38→21:28)
[2022-03-22] MEDS: B-COMPLEX W/ C & FOLIC ACID(NEPHROVITE TAB) PO SCH (08:38)
[2022-03-22] MEDS: FLORASTOR (S. BOULARDII) 250 MG CAP PO SCH (08:38)
[2022-03-22] MEDS: PANTOPRAZOLE 40 MG TAB PO SCH (08:38)
[2022-03-22] MEDS: HEPARIN SODIUM (PORCINE) 5000 UNITS/ML 1ML VIAL SC SCH ×2 (08:41→21:29)
[2022-03-22 09:00] VITALS: BP 173/66
[2022-03-22] MEDS ORDERED: VANCOMYCIN HCL 125MG/5ML ORAL SOL GT SCH (12:00)
[2022-03-22 12:23] LABS: INR 1.22 (0.9-1.15); Partial Thromboplastin Time 32.9 sec (23.6-33.0)
[2022-03-22 13:00] VITALS: BP 176/61
[2022-03-22] MEDS: ERTAPENEM SOD INJ 0.5 GM in SODIUM CHL 0.9% 50 ML IV SCH (13:17)
[2022-03-22] MEDS: VANCOMYCIN HCL 125MG/5ML ORAL SOL PO SCH ×2 (13:45→18:28)
[2022-03-22] MEDS: CHOLESTYRAMINE 4 GM POWDER PO SCH (15:21)
[2022-03-22 17:00] VITALS: BP 158/62
[2022-03-22] MEDS: hydrALAZINE HCL 20 MG/ML VL IV PRN (17:32)
[2022-03-22] MEDS ORDERED: LIDOCAINE 1% (LOCAL ANESTH.) PF 5ml SDV ID ONE (17:45)
[2022-03-22] MEDS: SODIUM CHLOR 0.9% PF (SALINE LOCK) 10ML VIAL/SYR IV SCH (21:28)
[2022-03-22 22:00] VITALS: BP 122/30
[2022-03-23] MEDS: ACCU-CHEK COMFORT CURVE STRIP VI SCH ×4 (00:22→17:42)
[2022-03-23] MEDS: VANCOMYCIN HCL 125MG/5ML ORAL SOL PO SCH ×4 (00:31→17:42)
[2022-03-23] MEDS: InsuLIN REG 1unit/0.01ml Soln (100units/ml) SC SCH ×4 (00:32→17:42)
[2022-03-23] MEDS: HYDROcodone-ACET 5/325MG TAB PO PRN ×3 (03:35→19:47)
[2022-03-23 05:00] VITALS: BP 98/70
[2022-03-23] MEDS: metroNIDAZOLE 500 MG TAB PO SCH ×3 (05:44→21:16)
[2022-03-23 09:00] VITALS: BP 121/52
[2022-03-23] MEDS: FLORASTOR (S. BOULARDII) 250 MG CAP PO SCH (10:11)
[2022-03-23] MEDS: FERROUS SULFATE 325mg EC TAB PO SCH ×2 (10:11→21:16)
[2022-03-23] MEDS: B-COMPLEX W/ C & FOLIC ACID(NEPHROVITE TAB) PO SCH (10:11)
[2022-03-23] MEDS: SODIUM CHLOR 0.9% PF (SALINE LOCK) 10ML VIAL/SYR IV SCH ×2 (10:11→21:16)
[2022-03-23] MEDS: HEPARIN SODIUM (PORCINE) 5000 UNITS/ML 1ML VIAL SC SCH ×2 (10:12→21:17)
[2022-03-23] MEDS: ERTAPENEM SOD INJ 0.5 GM in SODIUM CHL 0.9% 50 ML IV SCH (10:19)
[2022-03-23] MEDS: CHOLESTYRAMINE 4 GM POWDER PO SCH (12:04)
[2022-03-23 13:00] VITALS: BP 129/44
[2022-03-23] MEDS: Pro-Stat SF 30ml Vanilla PO SCH (16:51)
[2022-03-23] MEDS ORDERED: VANCOMYCIN 500 MG in D5W 5% 100 ML IV ONE (17:00)
[2022-03-23 17:11] VITALS: BP 107/36
[2022-03-23 22:00] VITALS: BP 150/50
[2022-03-24] VITALS (7 sets, daily range): BP systolic 138–185; BP diastolic 41–79
[2022-03-24] MEDS: ACCU-CHEK COMFORT CURVE STRIP VI SCH ×4 (00:10→18:00)
[2022-03-24] MEDS: VANCOMYCIN HCL 125MG/5ML ORAL SOL PO SCH ×4 (00:11→19:57)
[2022-03-24] MEDS: InsuLIN REG 1unit/0.01ml Soln (100units/ml) SC SCH ×4 (00:14→18:00)
[2022-03-24] MEDS: HYDROcodone-ACET 5/325MG TAB PO PRN ×3 (04:53→20:50)
[2022-03-24] MEDS: metroNIDAZOLE 500 MG TAB PO SCH ×3 (05:51→21:30)
[2022-03-24] MEDS: Pro-Stat SF 30ml Vanilla PO SCH (10:00)
[2022-03-24] MEDS: SODIUM CHLOR 0.9% PF (SALINE LOCK) 10ML VIAL/SYR IV SCH ×2 (10:00→21:42)
[2022-03-24] MEDS: ERTAPENEM SOD INJ 0.5 GM in SODIUM CHL 0.9% 50 ML IV SCH (11:41)
[2022-03-24] MEDS: FERROUS SULFATE 325mg EC TAB PO SCH ×2 (11:42→21:30)
[2022-03-24] MEDS: CHOLESTYRAMINE 4 GM POWDER PO SCH (11:42)
[2022-03-24] MEDS: FLORASTOR (S. BOULARDII) 250 MG CAP PO SCH (11:42)
[2022-03-24] MEDS: B-COMPLEX W/ C & FOLIC ACID(NEPHROVITE TAB) PO SCH (11:47)
[2022-03-24] MEDS: HEPARIN SODIUM (PORCINE) 5000 UNITS/ML 1ML VIAL SC SCH ×2 (11:51→21:32)
[2022-03-24] MEDS ORDERED: ONDANSETRON HCL 4 MG/2 ML VIAL IV PRN (13:00)
[2022-03-25] MEDS: InsuLIN REG 1unit/0.01ml Soln (100units/ml) SC SCH ×4 (00:53→18:00)
[2022-03-25] MEDS: VANCOMYCIN HCL 125MG/5ML ORAL SOL PO SCH ×4 (01:01→18:47)
[2022-03-25 05:00] VITALS: BP 154/47
[2022-03-25] MEDS: metroNIDAZOLE 500 MG TAB PO SCH ×3 (05:45→22:23)
[2022-03-25] MEDS: ACCU-CHEK COMFORT CURVE STRIP VI SCH ×4 (05:46→18:00)
[2022-03-25 08:00] VITALS: BP 145/36
[2022-03-25] MEDS: B-COMPLEX W/ C & FOLIC ACID(NEPHROVITE TAB) PO SCH (09:36)
[2022-03-25] MEDS: SODIUM CHLOR 0.9% PF (SALINE LOCK) 10ML VIAL/SYR IV SCH ×2 (09:36→22:23)
[2022-03-25] MEDS: ERTAPENEM SOD INJ 0.5 GM in SODIUM CHL 0.9% 50 ML IV SCH (09:36)
[2022-03-25] MEDS: FLORASTOR (S. BOULARDII) 250 MG CAP PO SCH (09:36)
[2022-03-25] MEDS: FERROUS SULFATE 325mg EC TAB PO SCH ×2 (09:36→22:23)
[2022-03-25] MEDS: CHOLESTYRAMINE 4 GM POWDER PO SCH (09:37)
[2022-03-25] MEDS: Pro-Stat SF 30ml Vanilla PO SCH (09:37)
[2022-03-25] MEDS: HEPARIN SODIUM (PORCINE) 5000 UNITS/ML 1ML VIAL SC SCH ×2 (09:40→22:23)
[2022-03-25] MEDS: HYDROcodone-ACET 5/325MG TAB PO PRN ×2 (09:41→18:37)
[2022-03-25 12:00] VITALS: BP 132/41
[2022-03-25 16:00] VITALS: BP 93/39
[2022-03-25 21:34] VITALS: BP 132/22
[2022-03-26] MEDS: ACCU-CHEK COMFORT CURVE STRIP VI SCH ×5 (00:22→23:22)
[2022-03-26] MEDS: VANCOMYCIN HCL 125MG/5ML ORAL SOL PO SCH ×5 (00:22→23:22)
[2022-03-26] MEDS: HYDROcodone-ACET 5/325MG TAB PO PRN ×2 (00:38→15:12)
[2022-03-26] MEDS: InsuLIN REG 1unit/0.01ml Soln (100units/ml) SC SCH ×5 (00:40→23:28)
[2022-03-26 05:20] VITALS: BP 90/30
[2022-03-26] MEDS: metroNIDAZOLE 500 MG TAB PO SCH ×3 (06:12→22:46)
[2022-03-26 09:00] VITALS: BP 146/35
[2022-03-26] MEDS ORDERED: VANC125PO PO (10:10)
[2022-03-26] MEDS: SODIUM CHLOR 0.9% PF (SALINE LOCK) 10ML VIAL/SYR IV SCH ×2 (10:14→22:45)
[2022-03-26] MEDS: FERROUS SULFATE 325mg EC TAB PO SCH ×2 (10:14→22:45)
[2022-03-26] MEDS: ERTAPENEM SOD INJ 0.5 GM in SODIUM CHL 0.9% 50 ML IV SCH (10:14)
[2022-03-26] MEDS: FLORASTOR (S. BOULARDII) 250 MG CAP PO SCH (10:14)
[2022-03-26] MEDS: B-COMPLEX W/ C & FOLIC ACID(NEPHROVITE TAB) PO SCH (10:14)
[2022-03-26] MEDS: Pro-Stat SF 30ml Vanilla PO SCH (10:16)
[2022-03-26] MEDS: HEPARIN SODIUM (PORCINE) 5000 UNITS/ML 1ML VIAL SC SCH ×2 (10:19→23:12)
[2022-03-26] MEDS: CHOLESTYRAMINE 4 GM POWDER PO SCH (12:29)
[2022-03-26 13:00] VITALS: BP 98/30
[2022-03-26 15:30] VITALS: BP 98/46
[2022-03-26 17:00] VITALS: BP 145/27
[2022-03-26 22:00] VITALS: BP 163/48
[2022-03-26] MEDS: hydrALAZINE HCL 20 MG/ML VL IV PRN (22:48)
[2022-03-27] VITALS (80 sets, daily range): BP systolic 86–180; BP diastolic 18–85
[2022-03-27] MEDS ORDERED: ETOMIDATE (2MG/ML) 20ML VIAL IV ONE ×3 (03:53→05:15)
[2022-03-27] MEDS ORDERED: SUCCINYLCHOLINE CHLORIDE 20 MG/ML 10ML VIAL IV ONE ×3 (03:54→05:15)
[2022-03-27] MEDS: MIDAZOLAM DRIP 50 mg/50mL 50 ML IV SCH (05:15)
[2022-03-27] MEDS ORDERED: MIDAZOLAM DRIP 50 mg/50mL 50 ML IV ONE (05:32)
[2022-03-27] MEDS: InsuLIN REG 1unit/0.01ml Soln (100units/ml) SC SCH ×4 (06:00→23:57)
[2022-03-27] MEDS: ACCU-CHEK COMFORT CURVE STRIP VI SCH ×4 (06:00→23:56)
[2022-03-27] MEDS ORDERED: LORazepam 2MG/ML-1ML VIAL IV ONE (07:15)
[2022-03-27 07:26] LABS: Basophils # (auto) 0 10 ^3/uL (0-0.2); Eosinophils # (auto) 0 10 ^3/uL (0-0.8); Eosinophils % (auto) 0.1 % (0.0-7.0); Hematocrit 31.5 % (36.0-46.0); Hemoglobin 10.6 g/dL (12.2-16.2); Lymphocytes # (auto) 0.4 10 ^3/uL (0.4-5.4); Lymphocytes % (auto) 3.8 % (10.0-50.0); Mean Corpuscular Hemoglobin 31.3 pg (28.0-32.0); Mean Corpuscular Hgb Conc. 33.5 g/dL (32.0-36.0); Mean Corpuscular Volume 93.4 fL (80.0-100.0); Monocytes # (auto) 0.3 10 ^3/uL (0-1.3); Monocytes % (auto) 2.5 % (0.0-12.0); Neutrophils # (auto) 9.7 10 ^3/uL (1.6-8.6); Neutrophils % (auto) 93.6 % (37.0-80.0); Red Blood Cells 3.38 10^6/uL (4.0-5.20); Red Cell Distribution Width 18.2 % (11.8-14.3); White Blood Cell 10.4 10^3/uL (4.4-10.8)
[2022-03-27 07:51] LABS: Albumin 2.4 g/dL (3.4-5.0); BUN/Creatinine Ratio 4.4; Calcium 8.2 mg/dL (8.5-10.1); Potassium 4.8 mmol/L (3.5-5.1)
[2022-03-27 07:53] LABS: Bilirubin, Total 0.6 mg/dL (0.2-1.0); Total Protein 6.7 g/dL (6.4-8.2)
[2022-03-27] MEDS ORDERED: VANCOMYCIN HCL 125MG/5ML ORAL SOL GT ONE (08:00)
[2022-03-27] MEDS ORDERED: metroNIDAZOLE 500 MG TAB GT ONE (08:00)
[2022-03-27] MEDS: Pro-Stat SF 30ml Vanilla PO SCH (10:00)
[2022-03-27] MEDS: FERROUS SULFATE 325mg EC TAB PO SCH ×2 (11:01→21:53)
[2022-03-27] MEDS: FLORASTOR (S. BOULARDII) 250 MG CAP PO SCH (11:01)
[2022-03-27] MEDS: HEPARIN SODIUM (PORCINE) 5000 UNITS/ML 1ML VIAL SC SCH ×2 (11:08→22:03)
[2022-03-27] MEDS: B-COMPLEX W/ C & FOLIC ACID(NEPHROVITE TAB) PO SCH (11:08)
[2022-03-27] MEDS: SODIUM CHLOR 0.9% PF (SALINE LOCK) 10ML VIAL/SYR IV SCH ×2 (12:09→21:54)
[2022-03-27] MEDS: VANCOMYCIN HCL 125MG/5ML ORAL SOL GT SCH ×3 (13:25→23:57)
[2022-03-27] MEDS: metroNIDAZOLE 500 MG TAB GT SCH ×2 (14:17→21:53)
[2022-03-27] MEDS: ERTAPENEM SOD INJ 0.5 GM in SODIUM CHL 0.9% 50 ML IV SCH (14:34)
[2022-03-27] MEDS: NOREPINEPHRINE 8 MG/250ML KIT 250 ML IV SCH (15:00)
[2022-03-27] MEDS: CHOLESTYRAMINE 4 GM POWDER PO SCH (17:17)
[2022-03-28] VITALS (105 sets, daily range): BP systolic 82–150; BP diastolic 18–60
[2022-03-28] MEDS: NOREPINEPHRINE 8 MG/250ML KIT 250 ML IV SCH ×2 (01:00→15:00)
[2022-03-28 03:58] LABS: Basophils # (auto) 0 10 ^3/uL (0-0.2); Eosinophils # (auto) 0 10 ^3/uL (0-0.8); Monocytes # (auto) 0.3 10 ^3/uL (0-1.3); Red Cell Distribution Width 18.4 % (11.8-14.3); White Blood Cell 8.5 10^3/uL (4.4-10.8)
[2022-03-28 04:00] LABS: Basophils % (auto) 0.6 % (0.0-2.0); Eosinophils % (auto) 0.4 % (0.0-7.0); Hematocrit 24.5 % (36.0-46.0); Hemoglobin 8.5 g/dL (12.2-16.2); Lymphocytes # (auto) 1.2 10 ^3/uL (0.4-5.4); Lymphocytes % (auto) 13.8 % (10.0-50.0); Mean Corpuscular Hemoglobin 31.9 pg (28.0-32.0); Mean Corpuscular Hgb Conc. 34.5 g/dL (32.0-36.0); Mean Corpuscular Volume 92.3 fL (80.0-100.0); Monocytes % (auto) 3.6 % (0.0-12.0); Neutrophils # (auto) 6.9 10 ^3/uL (1.6-8.6); Neutrophils % (auto) 81.6 % (37.0-80.0); Red Blood Cells 2.65 10^6/uL (4.0-5.20)
[2022-03-28 04:16] LABS: BUN/Creatinine Ratio 4.6; Calcium 7.8 mg/dL (8.5-10.1); Potassium 3.3 mmol/L (3.5-5.1)
[2022-03-28] MEDS: MIDAZOLAM DRIP 50 mg/50mL 50 ML IV SCH (05:15)
[2022-03-28] MEDS: VANCOMYCIN HCL 125MG/5ML ORAL SOL GT SCH ×4 (05:58→23:44)
[2022-03-28] MEDS: metroNIDAZOLE 500 MG TAB GT SCH ×3 (05:59→21:36)
[2022-03-28] MEDS: InsuLIN REG 1unit/0.01ml Soln (100units/ml) SC SCH ×3 (05:59→18:00)
[2022-03-28] MEDS: ACCU-CHEK COMFORT CURVE STRIP VI SCH ×4 (05:59→23:44)
[2022-03-28] MEDS: B-COMPLEX W/ C & FOLIC ACID(NEPHROVITE TAB) PO SCH (09:51)
[2022-03-28] MEDS: SODIUM CHLOR 0.9% PF (SALINE LOCK) 10ML VIAL/SYR IV SCH ×2 (09:51→21:36)
[2022-03-28] MEDS: FLORASTOR (S. BOULARDII) 250 MG CAP PO SCH (09:52)
[2022-03-28] MEDS: FERROUS SULFATE 325mg EC TAB PO SCH ×2 (09:52→21:36)
[2022-03-28] MEDS: Pro-Stat SF 30ml Vanilla PO SCH (09:53)
[2022-03-28] MEDS: HEPARIN SODIUM (PORCINE) 5000 UNITS/ML 1ML VIAL SC SCH ×3 (09:54→21:37)
[2022-03-28] MEDS: ERTAPENEM SOD INJ 0.5 GM in SODIUM CHL 0.9% 50 ML IV SCH (10:21)
[2022-03-28] MEDS: CHOLESTYRAMINE 4 GM POWDER PO SCH (11:00)
[2022-03-28] MEDS ORDERED: VANCOMYCIN 500 MG in D5W 5% 100 ML IV ONE (18:30)
[2022-03-29] VITALS (102 sets, daily range): BP systolic 79–154; BP diastolic 16–111
[2022-03-29] MEDS: CHOLESTYRAMINE 4 GM POWDER PO SCH (04:24)
[2022-03-29 04:54] LABS: Basophils # (auto) 0.1 10 ^3/uL (0-0.2); Basophils % (auto) 0.6 % (0.0-2.0); Eosinophils # (auto) 0.1 10 ^3/uL (0-0.8); Eosinophils % (auto) 0.9 % (0.0-7.0); Hematocrit 26.7 % (36.0-46.0); Hemoglobin 9.3 g/dL (12.2-16.2); Lymphocytes # (auto) 1.3 10 ^3/uL (0.4-5.4); Lymphocytes % (auto) 14.4 % (10.0-50.0); Mean Corpuscular Hemoglobin 31.6 pg (28.0-32.0); Mean Corpuscular Hgb Conc. 34.9 g/dL (32.0-36.0); Mean Corpuscular Volume 90.7 fL (80.0-100.0); Monocytes # (auto) 0.4 10 ^3/uL (0-1.3); Monocytes % (auto) 4.2 % (0.0-12.0); Neutrophils # (auto) 7.4 10 ^3/uL (1.6-8.6); Neutrophils % (auto) 79.9 % (37.0-80.0); Red Blood Cells 2.95 10^6/uL (4.0-5.20); White Blood Cell 9.2 10^3/uL (4.4-10.8)
[2022-03-29 05:13] LABS: Calcium 7.8 mg/dL (8.5-10.1)
[2022-03-29 05:15] LABS: BUN/Creatinine Ratio 3.7
[2022-03-29] MEDS: MIDAZOLAM DRIP 50 mg/50mL 50 ML IV SCH ×2 (05:15→06:31)
[2022-03-29 05:23] LABS: Potassium 2.7 mmol/L (3.5-5.1)
[2022-03-29] MEDS: InsuLIN REG 1unit/0.01ml Soln (100units/ml) SC SCH ×4 (06:00→17:38)
[2022-03-29] MEDS: metroNIDAZOLE 500 MG TAB GT SCH ×3 (06:12→22:04)
[2022-03-29] MEDS: VANCOMYCIN HCL 125MG/5ML ORAL SOL GT SCH ×3 (06:12→17:29)
[2022-03-29] MEDS: ACCU-CHEK COMFORT CURVE STRIP VI SCH ×3 (06:27→17:38)
[2022-03-29] MEDS ORDERED: POTASSIUM CHL 20MEQ/100ML 200 ML IV ONE (08:13)
[2022-03-29] MEDS: POTASSIUM CHL 20MEQ/100ML 100 ML IV SCH ×2 (08:15→09:35)
[2022-03-29] MEDS: FERROUS SULFATE 325mg EC TAB PO SCH ×2 (09:35→22:00)
[2022-03-29] MEDS: FLORASTOR (S. BOULARDII) 250 MG CAP PO SCH (09:35)
[2022-03-29] MEDS: SODIUM CHLOR 0.9% PF (SALINE LOCK) 10ML VIAL/SYR IV SCH ×2 (09:35→22:05)
[2022-03-29] MEDS: B-COMPLEX W/ C & FOLIC ACID(NEPHROVITE TAB) PO SCH (09:35)
[2022-03-29] MEDS: HEPARIN SODIUM (PORCINE) 5000 UNITS/ML 1ML VIAL SC SCH ×2 (09:36→22:29)
[2022-03-29] MEDS: Pro-Stat SF 30ml Vanilla PO SCH (09:37)
[2022-03-29] MEDS ORDERED: PANTOPRAZOLE 40 MG/10 ML VIAL INJ IV ONE ×2 (10:00→10:49)
[2022-03-29] MEDS: ERTAPENEM SOD INJ 0.5 GM in SODIUM CHL 0.9% 50 ML IV SCH (10:50)
[2022-03-29] MEDS: NOREPINEPHRINE 8 MG/250ML KIT 250 ML IV SCH (13:10)
[2022-03-30] VITALS (106 sets, daily range): BP systolic 92–142; BP diastolic 18–71
[2022-03-30] MEDS: ACCU-CHEK COMFORT CURVE STRIP VI SCH ×4 (00:17→17:27)
[2022-03-30] MEDS: VANCOMYCIN HCL 125MG/5ML ORAL SOL GT SCH ×4 (00:17→17:26)
[2022-03-30 03:45] LABS: Basophils # (auto) 0.1 10 ^3/uL (0-0.2); Basophils % (auto) 0.6 % (0.0-2.0); Eosinophils # (auto) 0.1 10 ^3/uL (0-0.8); Hematocrit 25.6 % (36.0-46.0); Hemoglobin 8.9 g/dL (12.2-16.2); Lymphocytes # (auto) 1.5 10 ^3/uL (0.4-5.4); Lymphocytes % (auto) 15.4 % (10.0-50.0); Mean Corpuscular Hemoglobin 31.6 pg (28.0-32.0); Mean Corpuscular Hgb Conc. 34.9 g/dL (32.0-36.0); Mean Corpuscular Volume 90.5 fL (80.0-100.0); Monocytes # (auto) 0.5 10 ^3/uL (0-1.3); Monocytes % (auto) 4.8 % (0.0-12.0); Neutrophils # (auto) 7.4 10 ^3/uL (1.6-8.6); Neutrophils % (auto) 78.2 % (37.0-80.0); Nucleated Red Blood Cells % 0.1 %; Red Blood Cells 2.83 10^6/uL (4.0-5.20); Red Cell Distribution Width 18.4 % (11.8-14.3); White Blood Cell 9.5 10^3/uL (4.4-10.8)
[2022-03-30 04:05] LABS: BUN/Creatinine Ratio 3.8; Calcium 7.9 mg/dL (8.5-10.1)
[2022-03-30] MEDS: CHOLESTYRAMINE 4 GM POWDER PO SCH (04:06)
[2022-03-30 04:07] LABS: Potassium 2.9 mmol/L (3.5-5.1)
[2022-03-30] MEDS: InsuLIN REG 1unit/0.01ml Soln (100units/ml) SC SCH ×4 (06:00→17:26)
[2022-03-30] MEDS: metroNIDAZOLE 500 MG TAB GT SCH ×3 (06:02→22:12)
[2022-03-30] MEDS ORDERED: POTASSIUM CHL 20MEQ/100ML 100 ML IV ONE (06:30)
[2022-03-30] MEDS: ALBUTEROL SULF 2.5 MG/0.5ML(0.5%) NEB SOLN NEB PRN (07:15)
[2022-03-30] MEDS: FERROUS SULFATE 325mg EC TAB PO SCH ×2 (09:47→22:00)
[2022-03-30] MEDS: FLORASTOR (S. BOULARDII) 250 MG CAP PO SCH (09:47)
[2022-03-30] MEDS: B-COMPLEX W/ C & FOLIC ACID(NEPHROVITE TAB) PO SCH (09:47)
[2022-03-30] MEDS: Pro-Stat SF 30ml Vanilla PO SCH (09:48)
[2022-03-30] MEDS: PANTOPRAZOLE 40 MG/10 ML VIAL INJ IV SCH (09:48)
[2022-03-30] MEDS: SODIUM CHLOR 0.9% PF (SALINE LOCK) 10ML VIAL/SYR IV SCH ×2 (09:48→22:20)
[2022-03-30] MEDS: HEPARIN SODIUM (PORCINE) 5000 UNITS/ML 1ML VIAL SC SCH ×2 (09:55→22:17)
[2022-03-30] MEDS: ERTAPENEM SOD INJ 0.5 GM in SODIUM CHL 0.9% 50 ML IV SCH (09:56)
[2022-03-30] MEDS: NOREPINEPHRINE 8 MG/250ML KIT 250 ML IV SCH (15:00)
[2022-03-31] VITALS (105 sets, daily range): BP systolic 80–151; BP diastolic 16–97
[2022-03-31] MEDS: ACCU-CHEK COMFORT CURVE STRIP VI SCH ×5 (00:19→23:39)
[2022-03-31] MEDS: VANCOMYCIN HCL 125MG/5ML ORAL SOL GT SCH ×5 (00:19→23:42)
[2022-03-31] MEDS: CHOLESTYRAMINE 4 GM POWDER PO SCH (04:30)
[2022-03-31 04:38] LABS: Basophils # (auto) 0.1 10 ^3/uL (0-0.2); Eosinophils # (auto) 0.1 10 ^3/uL (0-0.8); Eosinophils % (auto) 1.3 % (0.0-7.0); Hemoglobin 9.4 g/dL (12.2-16.2); Lymphocytes # (auto) 0.9 10 ^3/uL (0.4-5.4); Lymphocytes % (auto) 12.2 % (10.0-50.0); Mean Corpuscular Hemoglobin 31.3 pg (28.0-32.0); Mean Corpuscular Hgb Conc. 34.8 g/dL (32.0-36.0); Monocytes # (auto) 0.3 10 ^3/uL (0-1.3); Monocytes % (auto) 3.9 % (0.0-12.0); Neutrophils # (auto) 5.8 10 ^3/uL (1.6-8.6); Neutrophils % (auto) 81.6 % (37.0-80.0); Nucleated Red Blood Cells % 0.1 %; Red Cell Distribution Width 17.7 % (11.8-14.3); White Blood Cell 7.1 10^3/uL (4.4-10.8)
[2022-03-31 05:02] LABS: BUN/Creatinine Ratio 3.3
[2022-03-31 05:22] LABS: Potassium 2.8 mmol/L (3.5-5.1)
[2022-03-31] MEDS: metroNIDAZOLE 500 MG TAB GT SCH ×3 (05:54→22:58)
[2022-03-31] MEDS: InsuLIN REG 1unit/0.01ml Soln (100units/ml) SC SCH ×5 (05:55→23:39)
[2022-03-31] MEDS ORDERED: POTASSIUM CHL 20MEQ/100ML 100 ML IV ONE (06:45)
[2022-03-31] MEDS: FLORASTOR (S. BOULARDII) 250 MG CAP PO SCH (09:50)
[2022-03-31] MEDS: B-COMPLEX W/ C & FOLIC ACID(NEPHROVITE TAB) PO SCH (09:51)
[2022-03-31] MEDS: FERROUS SULFATE 325mg EC TAB PO SCH ×2 (09:51→22:00)
[2022-03-31] MEDS: PANTOPRAZOLE 40 MG/10 ML VIAL INJ IV SCH (09:51)
[2022-03-31] MEDS: SODIUM CHLOR 0.9% PF (SALINE LOCK) 10ML VIAL/SYR IV SCH ×2 (09:52→23:02)
[2022-03-31] MEDS: Pro-Stat SF 30ml Vanilla PO SCH (09:52)
[2022-03-31] MEDS: HEPARIN SODIUM (PORCINE) 5000 UNITS/ML 1ML VIAL SC SCH ×2 (09:53→23:00)
[2022-03-31] MEDS: ERTAPENEM SOD INJ 0.5 GM in SODIUM CHL 0.9% 50 ML IV SCH (09:55)
[2022-03-31] MEDS: NOREPINEPHRINE 8 MG/250ML KIT 250 ML IV SCH (15:00)
[2022-03-31] MEDS: POTASSIUM CHL 20MEQ/100ML 100 ML IV SCH ×2 (15:17→18:17)
[2022-04-01] VITALS (103 sets, daily range): BP systolic 74–155; BP diastolic 20–55
[2022-04-01] MEDS: NOREPINEPHRINE 8 MG/250ML KIT 250 ML IV SCH (01:56)
[2022-04-01 04:32] LABS: Basophils # (auto) 0.1 10 ^3/uL (0-0.2); Basophils % (auto) 1.5 % (0.0-2.0); Eosinophils # (auto) 0.1 10 ^3/uL (0-0.8); Eosinophils % (auto) 0.9 % (0.0-7.0); Hematocrit 27.4 % (36.0-46.0); Hemoglobin 9.1 g/dL (12.2-16.2); Lymphocytes # (auto) 0.9 10 ^3/uL (0.4-5.4); Lymphocytes % (auto) 11.7 % (10.0-50.0); Mean Corpuscular Hemoglobin 30.6 pg (28.0-32.0); Mean Corpuscular Hgb Conc. 33.3 g/dL (32.0-36.0); Mean Corpuscular Volume 92.1 fL (80.0-100.0); Monocytes # (auto) 0.3 10 ^3/uL (0-1.3); Monocytes % (auto) 3.5 % (0.0-12.0); Neutrophils # (auto) 6.6 10 ^3/uL (1.6-8.6); Neutrophils % (auto) 82.4 % (37.0-80.0); Red Blood Cells 2.97 10^6/uL (4.0-5.20)
[2022-04-01 04:50] LABS: Potassium 3.7 mmol/L (3.5-5.1)
[2022-04-01 04:54] LABS: BUN/Creatinine Ratio 4.1; Calcium 7.9 mg/dL (8.5-10.1)
[2022-04-01] MEDS: CHOLESTYRAMINE 4 GM POWDER PO SCH (05:18)
[2022-04-01] MEDS: ACCU-CHEK COMFORT CURVE STRIP VI SCH ×4 (06:00→23:20)
[2022-04-01] MEDS: InsuLIN REG 1unit/0.01ml Soln (100units/ml) SC SCH ×4 (06:00→23:26)
[2022-04-01] MEDS: VANCOMYCIN HCL 125MG/5ML ORAL SOL GT SCH ×4 (06:44→23:20)
[2022-04-01] MEDS: metroNIDAZOLE 500 MG TAB GT SCH ×3 (06:44→21:26)
[2022-04-01] MEDS: B-COMPLEX W/ C & FOLIC ACID(NEPHROVITE TAB) PO SCH (09:48)
[2022-04-01] MEDS: PANTOPRAZOLE 40 MG/10 ML VIAL INJ IV SCH (09:48)
[2022-04-01] MEDS: HEPARIN SODIUM (PORCINE) 5000 UNITS/ML 1ML VIAL SC SCH ×2 (09:48→21:42)
[2022-04-01] MEDS: FERROUS SULFATE 325mg EC TAB PO SCH (09:48)
[2022-04-01] MEDS: ERTAPENEM SOD INJ 0.5 GM in SODIUM CHL 0.9% 50 ML IV SCH (09:49)
[2022-04-01] MEDS: Pro-Stat SF 30ml Vanilla PO SCH (09:49)
[2022-04-01] MEDS: SODIUM CHLOR 0.9% PF (SALINE LOCK) 10ML VIAL/SYR IV SCH ×2 (09:49→23:04)
[2022-04-01] MEDS: FLORASTOR (S. BOULARDII) 250 MG CAP PO SCH (09:49)
[2022-04-01] MEDS: FERROUS SULFATE 300 MG/5 ML ORAL LIQ GT SCH (21:25)
[2022-04-01] MEDS ORDERED: EPOETIN ALFA-EPBX 10,000 UNIT/1ML VIAL SC ONE (21:45)
[2022-04-02] VITALS (96 sets, daily range): BP systolic 81–164; BP diastolic 16–70
[2022-04-02] MEDS: LORazepam 2MG/ML-1ML VIAL IV PRN ×4 (02:48→23:58)
[2022-04-02] MEDS ORDERED: LORazepam 2MG/ML-1ML VIAL ONE (02:48)
[2022-04-02 03:58] LABS: Basophils # (auto) 0 10 ^3/uL (0-0.2); Basophils % (auto) 0.2 % (0.0-2.0); Eosinophils # (auto) 0 10 ^3/uL (0-0.8); Eosinophils % (auto) 0.4 % (0.0-7.0); Hematocrit 27.1 % (36.0-46.0); Hemoglobin 9.4 g/dL (12.2-16.2); Lymphocytes # (auto) 0.3 10 ^3/uL (0.4-5.4); Lymphocytes % (auto) 4.5 % (10.0-50.0); Mean Corpuscular Hemoglobin 31.5 pg (28.0-32.0); Mean Corpuscular Hgb Conc. 34.8 g/dL (32.0-36.0); Mean Corpuscular Volume 90.3 fL (80.0-100.0); Monocytes # (auto) 0.2 10 ^3/uL (0-1.3); Monocytes % (auto) 2.8 % (0.0-12.0); Neutrophils # (auto) 6.2 10 ^3/uL (1.6-8.6); Neutrophils % (auto) 92.1 % (37.0-80.0); Red Cell Distribution Width 17.5 % (11.8-14.3); White Blood Cell 6.7 10^3/uL (4.4-10.8)
[2022-04-02] MEDS: CHOLESTYRAMINE 4 GM POWDER PO SCH (04:07)
[2022-04-02 04:16] LABS: Albumin 2.1 g/dL (3.4-5.0)
[2022-04-02 04:19] LABS: BUN/Creatinine Ratio 3.8; Bilirubin, Total 0.6 mg/dL (0.2-1.0); Total Protein 6.6 g/dL (6.4-8.2)
[2022-04-02 05:09] LABS: Potassium 2.8 mmol/L (3.5-5.1)
[2022-04-02] MEDS: VANCOMYCIN HCL 125MG/5ML ORAL SOL GT SCH ×3 (05:34→17:48)
[2022-04-02] MEDS: ACCU-CHEK COMFORT CURVE STRIP VI SCH ×3 (05:34→17:50)
[2022-04-02] MEDS: metroNIDAZOLE 500 MG TAB GT SCH ×3 (05:34→22:17)
[2022-04-02] MEDS: InsuLIN REG 1unit/0.01ml Soln (100units/ml) SC SCH ×3 (05:46→17:54)
[2022-04-02] MEDS: POTASSIUM CHL 20MEQ/100ML 100 ML IV SCH ×4 (06:52→21:32)
[2022-04-02] MEDS: Pro-Stat SF 30ml Vanilla PO SCH (10:00)
[2022-04-02] MEDS: PANTOPRAZOLE 40 MG/10 ML VIAL INJ IV SCH (10:21)
[2022-04-02] MEDS: FLORASTOR (S. BOULARDII) 250 MG CAP PO SCH (10:21)
[2022-04-02] MEDS: FERROUS SULFATE 300 MG/5 ML ORAL LIQ GT SCH ×2 (10:21→22:17)
[2022-04-02] MEDS: B-COMPLEX W/ C & FOLIC ACID(NEPHROVITE TAB) PO SCH (10:21)
[2022-04-02] MEDS: HEPARIN SODIUM (PORCINE) 5000 UNITS/ML 1ML VIAL SC SCH ×2 (10:22→22:18)
[2022-04-02] MEDS: SODIUM CHLOR 0.9% PF (SALINE LOCK) 10ML VIAL/SYR IV SCH ×2 (10:22→22:18)
[2022-04-02] MEDS: ERTAPENEM SOD INJ 0.5 GM in SODIUM CHL 0.9% 50 ML IV SCH (10:23)
[2022-04-02] MEDS: NOREPINEPHRINE 8 MG/250ML KIT 250 ML IV SCH (15:00)
[2022-04-02] MEDS ORDERED: VANCOMYCIN 500 MG in D5W 5% 100 ML IV ONE ×4 (15:00)
[2022-04-03] VITALS (105 sets, daily range): BP systolic 64–155; BP diastolic 15–101
[2022-04-03] MEDS: ACCU-CHEK COMFORT CURVE STRIP VI SCH ×4 (00:15→17:59)
[2022-04-03] MEDS: VANCOMYCIN HCL 125MG/5ML ORAL SOL GT SCH ×4 (00:16→18:00)
[2022-04-03] MEDS ORDERED: MAGNESIUM SULFATE 1GM/100ML 100 ML IV ONE ×2 (00:21→02:29)
[2022-04-03] MEDS: MAGNESIUM SULFATE 1GM/100ML 100 ML IV SCH ×2 (00:21→02:57)
[2022-04-03] MEDS: LORazepam 2MG/ML-1ML VIAL IV PRN ×2 (01:24→01:56)
[2022-04-03] MEDS ORDERED: PHENobarbital SODIUM INJ 600 MG in SODIUM CHL 0.9% 100 ML IV ONE (02:30)
[2022-04-03] MEDS ORDERED: PHENobarbital SODIUM 130 MG/ML VL ONE (03:00)
[2022-04-03] MEDS: CHOLESTYRAMINE 4 GM POWDER PO SCH (04:05)
[2022-04-03] MEDS: InsuLIN REG 1unit/0.01ml Soln (100units/ml) SC SCH ×4 (06:20→18:00)
[2022-04-03] MEDS: metroNIDAZOLE 500 MG TAB GT SCH ×3 (06:20→22:03)
[2022-04-03 06:22] LABS: Basophils # (auto) 0 10 ^3/uL (0-0.2); Basophils % (auto) 0.7 % (0.0-2.0); Eosinophils # (auto) 0 10 ^3/uL (0-0.8); Eosinophils % (auto) 0.2 % (0.0-7.0); Hemoglobin 9.2 g/dL (12.2-16.2); Lymphocytes # (auto) 1.1 10 ^3/uL (0.4-5.4); Lymphocytes % (auto) 16.3 % (10.0-50.0); Mean Corpuscular Hemoglobin 31.4 pg (28.0-32.0); Mean Corpuscular Volume 92.3 fL (80.0-100.0); Monocytes # (auto) 0.4 10 ^3/uL (0-1.3); Monocytes % (auto) 5.9 % (0.0-12.0); Neutrophils # (auto) 5.2 10 ^3/uL (1.6-8.6); Neutrophils % (auto) 76.9 % (37.0-80.0); Red Blood Cells 2.92 10^6/uL (4.0-5.20); Red Cell Distribution Width 18.2 % (11.8-14.3); White Blood Cell 6.8 10^3/uL (4.4-10.8)
[2022-04-03 06:45] LABS: Albumin 2.1 g/dL (3.4-5.0); Calcium 8.2 mg/dL (8.5-10.1); Magnesium 3.1 mg/dL (1.6-2.6); Potassium 3.7 mmol/L (3.5-5.1)
[2022-04-03 06:49] LABS: BUN/Creatinine Ratio 4.5; Bilirubin, Total 0.6 mg/dL (0.2-1.0); Total Protein 6.6 g/dL (6.4-8.2)
[2022-04-03] MEDS ORDERED: PHENYTOIN IV DILANTIN 1,000 MG in SODIUM CHL 0.9% 250 ML IV ONE (09:15)
[2022-04-03] MEDS: Pro-Stat SF 30ml Vanilla PO SCH (10:00)
[2022-04-03] MEDS: ERTAPENEM SOD INJ 0.5 GM in SODIUM CHL 0.9% 50 ML IV SCH (10:00)
[2022-04-03] MEDS: PANTOPRAZOLE 40 MG/10 ML VIAL INJ IV SCH (10:38)
[2022-04-03] MEDS: FERROUS SULFATE 300 MG/5 ML ORAL LIQ GT SCH ×2 (10:38→22:03)
[2022-04-03] MEDS: B-COMPLEX W/ C & FOLIC ACID(NEPHROVITE TAB) PO SCH (10:38)
[2022-04-03] MEDS: FLORASTOR (S. BOULARDII) 250 MG CAP PO SCH (10:39)
[2022-04-03] MEDS: HEPARIN SODIUM (PORCINE) 5000 UNITS/ML 1ML VIAL SC SCH ×2 (10:45→22:10)
[2022-04-03] MEDS: SODIUM CHLOR 0.9% PF (SALINE LOCK) 10ML VIAL/SYR IV SCH ×2 (11:06→22:04)
[2022-04-03] MEDS: PHENYTOIN SODIUM 50 MG/ML 2ML VIAL IV SCH ×2 (14:36→22:04)
[2022-04-03] MEDS: NOREPINEPHRINE 8 MG/250ML KIT 250 ML IV SCH ×2 (15:00→21:00)
[2022-04-03 15:04] LABS: INR 1.53 (0.9-1.15)
[2022-04-03] MEDS: Nepro With Carb Steady 1 Liter Bottle GT SCH (18:25)
[2022-04-04] VITALS (103 sets, daily range): BP systolic 89–138; BP diastolic 16–108
[2022-04-04] MEDS: VANCOMYCIN HCL 125MG/5ML ORAL SOL GT SCH ×5 (00:14→23:41)
[2022-04-04] MEDS: ACCU-CHEK COMFORT CURVE STRIP VI SCH ×5 (00:15→23:41)
[2022-04-04] MEDS: CHOLESTYRAMINE 4 GM POWDER PO SCH (04:00)
[2022-04-04] MEDS: metroNIDAZOLE 500 MG TAB GT SCH ×3 (06:00→21:48)
[2022-04-04] MEDS: PHENYTOIN SODIUM 50 MG/ML 2ML VIAL IV SCH ×3 (06:01→21:49)
[2022-04-04] MEDS: InsuLIN REG 1unit/0.01ml Soln (100units/ml) SC SCH ×5 (06:30→23:41)
[2022-04-04 09:09] LABS: Basophils # (auto) 0.1 10 ^3/uL (0-0.2); Eosinophils # (auto) 0.1 10 ^3/uL (0-0.8); Eosinophils % (auto) 1.6 % (0.0-7.0); Hematocrit 28.8 % (36.0-46.0); Lymphocytes # (auto) 1.7 10 ^3/uL (0.4-5.4); Lymphocytes % (auto) 18.5 % (10.0-50.0); Mean Corpuscular Hemoglobin 31.3 pg (28.0-32.0); Mean Corpuscular Hgb Conc. 34.6 g/dL (32.0-36.0); Mean Corpuscular Volume 90.4 fL (80.0-100.0); Monocytes # (auto) 0.7 10 ^3/uL (0-1.3); Monocytes % (auto) 7.5 % (0.0-12.0); Neutrophils # (auto) 6.4 10 ^3/uL (1.6-8.6); Neutrophils % (auto) 71.4 % (37.0-80.0); Red Blood Cells 3.19 10^6/uL (4.0-5.20); Red Cell Distribution Width 18.1 % (11.8-14.3)
[2022-04-04 09:28] LABS: BUN/Creatinine Ratio 4.3; Bilirubin, Total 0.5 mg/dL (0.2-1.0); Total Protein 6.7 g/dL (6.4-8.2)
[2022-04-04 09:32] LABS: Potassium 2.6 mmol/L (3.5-5.1)
[2022-04-04] MEDS: B-COMPLEX W/ C & FOLIC ACID(NEPHROVITE TAB) PO SCH (09:56)
[2022-04-04] MEDS: SODIUM CHLOR 0.9% PF (SALINE LOCK) 10ML VIAL/SYR IV SCH ×2 (09:57→22:12)
[2022-04-04] MEDS: FLORASTOR (S. BOULARDII) 250 MG CAP PO SCH (09:57)
[2022-04-04] MEDS: FERROUS SULFATE 300 MG/5 ML ORAL LIQ GT SCH ×2 (09:57→21:48)
[2022-04-04] MEDS: ERTAPENEM SOD INJ 0.5 GM in SODIUM CHL 0.9% 50 ML IV SCH (09:57)
[2022-04-04] MEDS: PANTOPRAZOLE 40 MG/10 ML VIAL INJ IV SCH (09:57)
[2022-04-04] MEDS: Pro-Stat SF 30ml Vanilla PO SCH (09:58)
[2022-04-04] MEDS ORDERED: POTASSIUM EFFERVESENT TAB 25 MEQ PO ONE (10:00)
[2022-04-04] MEDS: HEPARIN SODIUM (PORCINE) 5000 UNITS/ML 1ML VIAL SC SCH ×2 (10:10→21:49)
[2022-04-04] MEDS: POTASSIUM CHL 20MEQ/100ML 100 ML IV SCH ×2 (10:20→11:42)
[2022-04-04] MEDS: NOREPINEPHRINE 8 MG/250ML KIT 250 ML IV SCH (14:30)
[2022-04-05] VITALS (78 sets, daily range): BP systolic 91–142; BP diastolic 16–98
[2022-04-05] MEDS: CHOLESTYRAMINE 4 GM POWDER PO SCH (03:37)
[2022-04-05 04:55] LABS: Calcium 8.8 mg/dL (8.5-10.1); Potassium 3.6 mmol/L (3.5-5.1)
[2022-04-05] MEDS: NOREPINEPHRINE 8 MG/250ML KIT 250 ML IV SCH ×2 (04:55→12:08)
[2022-04-05 04:58] LABS: BUN/Creatinine Ratio 4.9
[2022-04-05] MEDS: VANCOMYCIN HCL 125MG/5ML ORAL SOL GT SCH ×4 (05:55→23:41)
[2022-04-05] MEDS: ACCU-CHEK COMFORT CURVE STRIP VI SCH ×4 (05:55→23:41)
[2022-04-05] MEDS: PHENYTOIN SODIUM 50 MG/ML 2ML VIAL IV SCH ×3 (05:55→22:11)
[2022-04-05] MEDS: InsuLIN REG 1unit/0.01ml Soln (100units/ml) SC SCH ×4 (05:55→23:42)
[2022-04-05] MEDS: metroNIDAZOLE 500 MG TAB GT SCH ×3 (05:55→22:11)
[2022-04-05] MEDS ORDERED: SODIUM CHLORIDE 0.9% 250 ML IV ONE (06:45)
[2022-04-05] MEDS ORDERED: SODIUM CHLORIDE 0.9% 1,000 ML IV ONE (06:45)
[2022-04-05] MEDS: FERROUS SULFATE 300 MG/5 ML ORAL LIQ GT SCH ×2 (10:00→22:14)
[2022-04-05] MEDS ORDERED: LINEZOLID 600MG/300ML 300 ML IV SCH (10:00)
[2022-04-05] MEDS: Pro-Stat SF 30ml Vanilla PO SCH (10:00)
[2022-04-05] MEDS: B-COMPLEX W/ C & FOLIC ACID(NEPHROVITE TAB) PO SCH (10:00)
[2022-04-05] MEDS ORDERED: ALBUMIN 25% 100 ML IV ONE (11:00)
[2022-04-05] MEDS ORDERED: VANCOMYCIN PER PHARMACY 0 MG IV SCH (11:15)
[2022-04-05] MEDS: SODIUM CHLOR 0.9% PF (SALINE LOCK) 10ML VIAL/SYR IV SCH ×2 (12:13→22:12)
[2022-04-05] MEDS: FLORASTOR (S. BOULARDII) 250 MG CAP PO SCH (12:20)
[2022-04-05] MEDS: HEPARIN SODIUM (PORCINE) 5000 UNITS/ML 1ML VIAL SC SCH ×2 (12:21→22:11)
[2022-04-05] MEDS ORDERED: ERTAPENEM SOD INJ 0.5 GM in SODIUM CHL 0.9% 50 ML IV ONE (13:00)
[2022-04-05] MEDS: PANTOPRAZOLE 40 MG/10 ML VIAL INJ IV SCH (13:38)
[2022-04-05] MEDS ORDERED: VANCOMYCIN 500 MG in D5W 5% 100 ML IV ONE (21:00)
[2022-04-06] VITALS (95 sets, daily range): BP systolic 83–141; BP diastolic 19–64
[2022-04-06] MEDS: NOREPINEPHRINE 8 MG/250ML KIT 250 ML IV SCH ×2 (02:39→20:56)
[2022-04-06] MEDS: CHOLESTYRAMINE 4 GM POWDER PO SCH (04:53)
[2022-04-06 05:40] LABS: Alanine Aminotransferase < 6 U/L (13-56); Anion Gap 11 (5-15); Aspartate Aminotransferase 12 U/L (15-37); BUN/Creatinine Ratio 4.6; Blood Urea Nitrogen 16 mg/dL (7-18); Calcium 8.3 mg/dL (8.5-10.1); Carbon Dioxide 21 mmol/L (21-32); Chloride 107 mmol/L (98-107); GFR African American 17 mL/min; GFR Non-African American 14 mL/min; Glucose 173 mg/dL (74-106); Sodium 139 mmol/L (136-145)
[2022-04-06 05:42] LABS: Alkaline Phosphatase 163 U/L (45-117); Bilirubin, Total 0.6 mg/dL (0.2-1.0); Total Protein 6.4 g/dL (6.4-8.2)
[2022-04-06 05:48] LABS: Potassium 2.6 mmol/L (3.5-5.1)
[2022-04-06] MEDS: PHENYTOIN SODIUM 50 MG/ML 2ML VIAL IV SCH ×3 (05:54→21:50)
[2022-04-06] MEDS: InsuLIN REG 1unit/0.01ml Soln (100units/ml) SC SCH ×3 (05:54→18:00)
[2022-04-06] MEDS: VANCOMYCIN HCL 125MG/5ML ORAL SOL GT SCH ×3 (05:55→18:00)
[2022-04-06] MEDS: metroNIDAZOLE 500 MG TAB GT SCH ×3 (05:55→21:50)
[2022-04-06] MEDS: ACCU-CHEK COMFORT CURVE STRIP VI SCH ×3 (05:56→18:00)
[2022-04-06] MEDS: FERROUS SULFATE 300 MG/5 ML ORAL LIQ GT SCH ×2 (09:17→21:51)
[2022-04-06] MEDS: POTASSIUM CHL 20MEQ/100ML 100 ML IV SCH ×2 (09:17→11:06)
[2022-04-06] MEDS: PANTOPRAZOLE 40 MG/10 ML VIAL INJ IV SCH (09:18)
[2022-04-06] MEDS: B-COMPLEX W/ C & FOLIC ACID(NEPHROVITE TAB) PO SCH (09:18)
[2022-04-06] MEDS: HEPARIN SODIUM (PORCINE) 5000 UNITS/ML 1ML VIAL SC SCH ×2 (09:18→21:53)
[2022-04-06] MEDS: SODIUM CHLOR 0.9% PF (SALINE LOCK) 10ML VIAL/SYR IV SCH ×2 (09:19→21:51)
[2022-04-06] MEDS: FLORASTOR (S. BOULARDII) 250 MG CAP PO SCH (09:20)
[2022-04-06] MEDS: Pro-Stat SF 30ml Vanilla PO SCH (09:27)
[2022-04-06] MEDS: ERTAPENEM SOD INJ 0.5 GM in SODIUM CHL 0.9% 50 ML IV SCH (18:00)
[2022-04-07] VITALS (97 sets, daily range): BP systolic 107–146; BP diastolic 12–38
[2022-04-07] MEDS: InsuLIN REG 1unit/0.01ml Soln (100units/ml) SC SCH ×5 (00:02→23:59)
[2022-04-07] MEDS: ACCU-CHEK COMFORT CURVE STRIP VI SCH ×5 (00:03→23:58)
[2022-04-07] MEDS: VANCOMYCIN HCL 125MG/5ML ORAL SOL GT SCH ×5 (00:04→23:58)
[2022-04-07] MEDS: CHOLESTYRAMINE 4 GM POWDER PO SCH (04:05)
[2022-04-07 04:46] LABS: Anion Gap 10 (5-15); Blood Urea Nitrogen 20 mg/dL (7-18); Calcium 8.4 mg/dL (8.5-10.1); Carbon Dioxide 20 mmol/L (21-32); Chloride 109 mmol/L (98-107); Glucose 160 mg/dL (74-106); Potassium 3.1 mmol/L (3.5-5.1); Sodium 139 mmol/L (136-145)
[2022-04-07 04:51] LABS: Alanine Aminotransferase < 6 U/L (13-56); Alkaline Phosphatase 159 U/L (45-117); Aspartate Aminotransferase 7 U/L (15-37); BUN/Creatinine Ratio 4.4; Bilirubin, Total 0.6 mg/dL (0.2-1.0); GFR African American 13 mL/min; GFR Non-African American 10 mL/min; Total Protein 6.6 g/dL (6.4-8.2)
[2022-04-07] MEDS: metroNIDAZOLE 500 MG TAB GT SCH ×3 (05:42→21:53)
[2022-04-07] MEDS: PHENYTOIN SODIUM 50 MG/ML 2ML VIAL IV SCH ×3 (05:42→21:53)
[2022-04-07] MEDS: PANTOPRAZOLE 40 MG/10 ML VIAL INJ IV SCH (09:33)
[2022-04-07] MEDS: HEPARIN SODIUM (PORCINE) 5000 UNITS/ML 1ML VIAL SC SCH ×2 (09:33→21:54)
[2022-04-07] MEDS: FLORASTOR (S. BOULARDII) 250 MG CAP PO SCH (09:33)
[2022-04-07] MEDS: B-COMPLEX W/ C & FOLIC ACID(NEPHROVITE TAB) PO SCH (09:33)
[2022-04-07] MEDS: Pro-Stat SF 30ml Vanilla PO SCH (09:34)
[2022-04-07] MEDS: SODIUM CHLOR 0.9% PF (SALINE LOCK) 10ML VIAL/SYR IV SCH ×2 (09:34→21:55)
[2022-04-07] MEDS: FERROUS SULFATE 300 MG/5 ML ORAL LIQ GT SCH ×2 (09:34→21:55)
[2022-04-07 17:07] LABS: Basophils # (auto) 0.1 10 ^3/uL (0-0.2); Basophils % (auto) 1.2 % (0.0-2.0); Eosinophils # (auto) 0.2 10 ^3/uL (0-0.8); Eosinophils % (auto) 2.9 % (0.0-7.0); Hematocrit 28.2 % (36.0-46.0); Hemoglobin 9.5 g/dL (12.2-16.2); Lymphocytes % (auto) 14.8 % (10.0-50.0); Mean Corpuscular Hemoglobin 31.5 pg (28.0-32.0); Mean Corpuscular Hgb Conc. 33.8 g/dL (32.0-36.0); Mean Corpuscular Volume 93.1 fL (80.0-100.0); Monocytes # (auto) 0.3 10 ^3/uL (0-1.3); Monocytes % (auto) 4.5 % (0.0-12.0); Neutrophils # (auto) 5.4 10 ^3/uL (1.6-8.6); Neutrophils % (auto) 76.6 % (37.0-80.0); Red Blood Cells 3.02 10^6/uL (4.0-5.20); Red Cell Distribution Width 18.5 % (11.8-14.3)
[2022-04-07] MEDS: ERTAPENEM SOD INJ 0.5 GM in SODIUM CHL 0.9% 50 ML IV SCH (17:45)
[2022-04-08] VITALS (98 sets, daily range): BP systolic 93–141; BP diastolic 17–55
[2022-04-08] MEDS: CHOLESTYRAMINE 4 GM POWDER PO SCH (03:31)
[2022-04-08 04:09] LABS: Basophils # (auto) 0.1 10 ^3/uL (0-0.2); Basophils % (auto) 1.3 % (0.0-2.0); Eosinophils # (auto) 0.2 10 ^3/uL (0-0.8); Eosinophils % (auto) 2.6 % (0.0-7.0); Hematocrit 27.9 % (36.0-46.0); Hemoglobin 9.5 g/dL (12.2-16.2); Lymphocytes # (auto) 1.2 10 ^3/uL (0.4-5.4); Lymphocytes % (auto) 17.3 % (10.0-50.0); Mean Corpuscular Hemoglobin 32.1 pg (28.0-32.0); Mean Corpuscular Volume 94.4 fL (80.0-100.0); Monocytes # (auto) 0.5 10 ^3/uL (0-1.3); Monocytes % (auto) 6.5 % (0.0-12.0); Neutrophils # (auto) 5.2 10 ^3/uL (1.6-8.6); Neutrophils % (auto) 72.3 % (37.0-80.0); Nucleated Red Blood Cells % 0.1 %; Red Blood Cells 2.95 10^6/uL (4.0-5.20); Red Cell Distribution Width 18.4 % (11.8-14.3); White Blood Cell 7.1 10^3/uL (4.4-10.8)
[2022-04-08 04:29] LABS: Anion Gap 12 (5-15); Blood Urea Nitrogen 27 mg/dL (7-18); Calcium 8.5 mg/dL (8.5-10.1); Carbon Dioxide 17 mmol/L (21-32); Chloride 109 mmol/L (98-107); Glucose 139 mg/dL (74-106); Sodium 138 mmol/L (136-145)
[2022-04-08 04:32] LABS: Alanine Aminotransferase < 6 U/L (13-56); Alkaline Phosphatase 152 U/L (45-117); Aspartate Aminotransferase 8 U/L (15-37); BUN/Creatinine Ratio 4.8; Bilirubin, Total 0.5 mg/dL (0.2-1.0); GFR African American 10 mL/min; GFR Non-African American 8 mL/min; Total Protein 6.4 g/dL (6.4-8.2)
[2022-04-08 04:53] LABS: Potassium 2.6 mmol/L (3.5-5.1)
[2022-04-08] MEDS: metroNIDAZOLE 500 MG TAB GT SCH ×3 (05:34→22:08)
[2022-04-08] MEDS: ACCU-CHEK COMFORT CURVE STRIP VI SCH ×4 (05:34→23:39)
[2022-04-08] MEDS: PHENYTOIN SODIUM 50 MG/ML 2ML VIAL IV SCH (05:34)
[2022-04-08] MEDS: VANCOMYCIN HCL 125MG/5ML ORAL SOL GT SCH ×4 (05:34→23:54)
[2022-04-08] MEDS: InsuLIN REG 1unit/0.01ml Soln (100units/ml) SC SCH ×4 (05:35→23:40)
[2022-04-08] MEDS ORDERED: SODIUM CHL 0.9% 1000 ML BAG XX ONE (08:15)
[2022-04-08] MEDS: PANTOPRAZOLE 40 MG/10 ML VIAL INJ IV SCH (09:59)
[2022-04-08] MEDS: SODIUM CHLOR 0.9% PF (SALINE LOCK) 10ML VIAL/SYR IV SCH ×2 (09:59→22:11)
[2022-04-08] MEDS: FERROUS SULFATE 300 MG/5 ML ORAL LIQ GT SCH ×2 (10:00→22:11)
[2022-04-08] MEDS: B-COMPLEX W/ C & FOLIC ACID(NEPHROVITE TAB) PO SCH (10:00)
[2022-04-08] MEDS: FLORASTOR (S. BOULARDII) 250 MG CAP PO SCH (10:00)
[2022-04-08] MEDS: Pro-Stat SF 30ml Vanilla PO SCH (10:01)
[2022-04-08] MEDS: HEPARIN SODIUM (PORCINE) 5000 UNITS/ML 1ML VIAL SC SCH ×2 (10:03→22:13)
[2022-04-08] MEDS: NOREPINEPHRINE 8 MG/250ML KIT 250 ML IV SCH ×2 (14:08→22:14)
[2022-04-08] MEDS ORDERED: BACTRIM 5MG/KG Q8HR PER RX 10 ML IV SCH (15:15)
[2022-04-08] MEDS ORDERED: VANCOMYCIN 500 MG in D5W 5% 100 ML IV ONE (16:00)
[2022-04-08] MEDS ORDERED: EPOETIN ALFA-EPBX 10,000 UNIT/1ML VIAL SC ONE (21:00)
[2022-04-08] MEDS ORDERED: MEROPENEM 1GM IVPB 100 ML IV SCH (22:00)
[2022-04-08] MEDS: Nepro With Carb Steady 1 Liter Bottle GT SCH (23:52)
[2022-04-09] VITALS (102 sets, daily range): BP systolic 85–148; BP diastolic 16–95
[2022-04-09] MEDS: CHOLESTYRAMINE 4 GM POWDER PO SCH (04:02)
[2022-04-09 04:44] LABS: Calcium 8.3 mg/dL (8.5-10.1)
[2022-04-09 04:46] LABS: BUN/Creatinine Ratio 4.4
[2022-04-09 04:50] LABS: Potassium 2.5 mmol/L (3.5-5.1)
[2022-04-09] MEDS: metroNIDAZOLE 500 MG TAB GT SCH ×3 (05:47→21:51)
[2022-04-09] MEDS: ACCU-CHEK COMFORT CURVE STRIP VI SCH ×3 (05:47→18:40)
[2022-04-09] MEDS: InsuLIN REG 1unit/0.01ml Soln (100units/ml) SC SCH ×3 (05:49→18:41)
[2022-04-09] MEDS: VANCOMYCIN HCL 125MG/5ML ORAL SOL GT SCH ×2 (05:51→11:40)
[2022-04-09] MEDS: FERROUS SULFATE 300 MG/5 ML ORAL LIQ GT SCH ×2 (09:46→21:50)
[2022-04-09] MEDS: B-COMPLEX W/ C & FOLIC ACID(NEPHROVITE TAB) PO SCH (09:46)
[2022-04-09] MEDS: FLORASTOR (S. BOULARDII) 250 MG CAP PO SCH (09:46)
[2022-04-09] MEDS: PANTOPRAZOLE 40 MG/10 ML VIAL INJ IV SCH (09:46)
[2022-04-09] MEDS: Pro-Stat SF 30ml Vanilla PO SCH (09:48)
[2022-04-09] MEDS: POTASSIUM CHL 20MEQ/100ML 100 ML IV SCH ×2 (09:48→11:40)
[2022-04-09] MEDS: SODIUM CHLOR 0.9% PF (SALINE LOCK) 10ML VIAL/SYR IV SCH ×2 (09:48→21:52)
[2022-04-09] MEDS: HEPARIN SODIUM (PORCINE) 5000 UNITS/ML 1ML VIAL SC SCH ×2 (09:49→21:52)
[2022-04-09] MEDS: NOREPINEPHRINE 8 MG/250ML KIT 250 ML IV SCH (21:55)
[2022-04-10] VITALS (91 sets, daily range): BP systolic 73–163; BP diastolic 13–50
[2022-04-10] MEDS: ACCU-CHEK COMFORT CURVE STRIP VI SCH ×4 (00:10→17:28)
[2022-04-10] MEDS: InsuLIN REG 1unit/0.01ml Soln (100units/ml) SC SCH ×5 (00:12→23:59)
[2022-04-10] MEDS: CHOLESTYRAMINE 4 GM POWDER PO SCH (04:24)
[2022-04-10 04:43] LABS: BUN/Creatinine Ratio 4.8; Calcium 8.7 mg/dL (8.5-10.1)
[2022-04-10 04:45] LABS: INR 1.53 (0.9-1.15); Partial Thromboplastin Time 36.2 sec (23.6-33.0)
[2022-04-10 04:57] LABS: Potassium 2.9 mmol/L (3.5-5.1)
[2022-04-10] MEDS: metroNIDAZOLE 500 MG TAB GT SCH ×3 (05:51→22:08)
[2022-04-10] MEDS: PANTOPRAZOLE 40 MG/10 ML VIAL INJ IV SCH (09:15)
[2022-04-10] MEDS: B-COMPLEX W/ C & FOLIC ACID(NEPHROVITE TAB) PO SCH (09:15)
[2022-04-10] MEDS: FERROUS SULFATE 300 MG/5 ML ORAL LIQ GT SCH ×2 (09:16→22:06)
[2022-04-10] MEDS: FLORASTOR (S. BOULARDII) 250 MG CAP PO SCH (09:16)
[2022-04-10] MEDS: HEPARIN SODIUM (PORCINE) 5000 UNITS/ML 1ML VIAL SC SCH ×2 (09:16→22:07)
[2022-04-10] MEDS: POTASSIUM CHL 20MEQ/100ML 100 ML IV SCH ×2 (09:17→12:00)
[2022-04-10] MEDS: SODIUM CHLOR 0.9% PF (SALINE LOCK) 10ML VIAL/SYR IV SCH ×2 (10:00→22:21)
[2022-04-10] MEDS: Pro-Stat SF 30ml Vanilla PO SCH (10:00)
[2022-04-10] MEDS ORDERED: SODIUM CHL 0.9% 1000 ML BAG XX ONE (14:00)
[2022-04-10] MEDS ORDERED: ALBUMIN 25% 100 ML IV ONE (14:14)
[2022-04-10 15:13] LABS: Hematocrit 26.9 % (36.0-46.0); Hemoglobin 9.3 g/dL (12.2-16.2)
[2022-04-10] MEDS ORDERED: phytonadione 5 MG in SODIUM CHL 0.9% 50 ML IV ONE (15:15)
[2022-04-10] MEDS ORDERED: CeftoloZANE-TAZOB 1g/0.5g VL 1.5 GM in SODIUM CHL 0.9% 100 ML IV ONE (20:00)
[2022-04-10] MEDS ORDERED: EPOETIN ALFA-EPBX 4,000 UNIT/ML VIAL SC ONE (21:00)
[2022-04-11] VITALS (84 sets, daily range): BP systolic 87–177; BP diastolic 16–67
[2022-04-11] MEDS: ACCU-CHEK COMFORT CURVE STRIP VI SCH ×4 (00:16→17:40)
[2022-04-11] MEDS: CHOLESTYRAMINE 4 GM POWDER PO SCH (03:58)
[2022-04-11 04:38] LABS: Basophils # (auto) 0.1 10 ^3/uL (0-0.2); Basophils % (auto) 0.9 % (0.0-2.0); Eosinophils # (auto) 0.1 10 ^3/uL (0-0.8); Eosinophils % (auto) 1.4 % (0.0-7.0); Hematocrit 27.1 % (36.0-46.0); Lymphocytes # (auto) 0.9 10 ^3/uL (0.4-5.4); Lymphocytes % (auto) 12.6 % (10.0-50.0); Mean Corpuscular Hemoglobin 31.5 pg (28.0-32.0); Mean Corpuscular Hgb Conc. 34.5 g/dL (32.0-36.0); Mean Corpuscular Volume 91.2 fL (80.0-100.0); Monocytes # (auto) 0.4 10 ^3/uL (0-1.3); Monocytes % (auto) 4.8 % (0.0-12.0); Neutrophils % (auto) 80.3 % (37.0-80.0); Red Blood Cells 2.97 10^6/uL (4.0-5.20); Red Cell Distribution Width 18.6 % (11.8-14.3); White Blood Cell 7.5 10^3/uL (4.4-10.8)
[2022-04-11 04:40] LABS: Hemoglobin 9.3 g/dL (12.2-16.2)
[2022-04-11 04:49] LABS: Calcium 8.3 mg/dL (8.5-10.1)
[2022-04-11 04:53] LABS: BUN/Creatinine Ratio 4.1
[2022-04-11 05:08] LABS: Potassium 2.8 mmol/L (3.5-5.1)
[2022-04-11] MEDS: InsuLIN REG 1unit/0.01ml Soln (100units/ml) SC SCH ×3 (06:00→17:40)
[2022-04-11] MEDS: metroNIDAZOLE 500 MG TAB GT SCH ×3 (06:09→22:32)
[2022-04-11 07:10] LABS: INR 1.32 (0.9-1.15); Partial Thromboplastin Time 32.4 sec (23.6-33.0)
[2022-04-11] MEDS: POTASSIUM CHL 20MEQ/100ML 100 ML IV SCH ×2 (07:30→09:22)
[2022-04-11] MEDS ORDERED: MIDAZOLAM HCL 2MG/2ML 2ml VIAL (1mg/ml) ONE (08:23)
[2022-04-11] MEDS ORDERED: ROCURONIUM 10MG/ML 10ML VIAL IV ONE (08:23)
[2022-04-11] MEDS ORDERED: SODIUM CHLORIDE LOCK 10 ML ONE (08:23)
[2022-04-11] MEDS ORDERED: HYDROmorphone HCL 2 MG/ML VL/or syr ONE (08:23)
[2022-04-11] MEDS ORDERED: fentaNYL CITRATE 5 ML ONE (08:23)
[2022-04-11] MEDS ORDERED: ETOMIDATE (2MG/ML) 20ML VIAL IV ONE (08:23)
[2022-04-11] MEDS ORDERED: LIDOCAINE 1%-Mpf/Epinephrine 1:200,000 ONE (09:07)
[2022-04-11] MEDS: FLORASTOR (S. BOULARDII) 250 MG CAP PO SCH (09:22)
[2022-04-11] MEDS: FERROUS SULFATE 300 MG/5 ML ORAL LIQ GT SCH ×2 (09:22→22:32)
[2022-04-11] MEDS: PANTOPRAZOLE 40 MG/10 ML VIAL INJ IV SCH (09:22)
[2022-04-11] MEDS: B-COMPLEX W/ C & FOLIC ACID(NEPHROVITE TAB) PO SCH (09:22)
[2022-04-11] MEDS: Pro-Stat SF 30ml Vanilla PO SCH (10:00)
[2022-04-11] MEDS: SODIUM CHLOR 0.9% PF (SALINE LOCK) 10ML VIAL/SYR IV SCH ×2 (10:00→22:00)
[2022-04-11] MEDS: HEPARIN SODIUM (PORCINE) 5000 UNITS/ML 1ML VIAL SC SCH ×2 (10:00→22:27)
[2022-04-11] MEDS ORDERED: ceFAZolin 1GM/50ML 100 ML IV ONE (10:51)
[2022-04-11] MEDS ORDERED: POTASSIUM CHL 20MEQ/100ML 100 ML IV STA (10:54)
[2022-04-11] MEDS: SODIUM CHL 0.9% IV SCH ×2 (14:37→22:00)
[2022-04-11] MEDS: CEFTOLOZANE TAZOB IV SCH ×2 (14:37→22:00)
[2022-04-11] MEDS: [UNRECOGNIZED DRUG - OTHER] IV SCH ×2 (14:37→22:00)
[2022-04-11] MEDS: NOREPINEPHRINE 8 MG/250ML KIT 250 ML IV SCH (15:00)
[2022-04-11] MEDS ORDERED: LOPERAMIDE 1 mg/7.5ml ORAL soln GT ONE (15:15)
[2022-04-11] MEDS: MORPHINE SULFATE INJ 2 MG/ml SYRG IV PRN (22:40)
[2022-04-12] VITALS (81 sets, daily range): BP systolic 90–159; BP diastolic 21–64
[2022-04-12] MEDS: InsuLIN REG 1unit/0.01ml Soln (100units/ml) SC SCH ×5 (00:05→23:44)
[2022-04-12] MEDS: ACCU-CHEK COMFORT CURVE STRIP VI SCH ×5 (00:06→23:45)
[2022-04-12 03:51] LABS: Basophils # (auto) 0.1 10 ^3/uL (0-0.2); Basophils % (auto) 0.9 % (0.0-2.0); Eosinophils # (auto) 0.2 10 ^3/uL (0-0.8); Eosinophils % (auto) 2.7 % (0.0-7.0); Hematocrit 26.8 % (36.0-46.0); Lymphocytes % (auto) 13.5 % (10.0-50.0); Mean Corpuscular Hemoglobin 30.9 pg (28.0-32.0); Mean Corpuscular Hgb Conc. 33.6 g/dL (32.0-36.0); Mean Corpuscular Volume 92.1 fL (80.0-100.0); Monocytes # (auto) 0.5 10 ^3/uL (0-1.3); Monocytes % (auto) 6.9 % (0.0-12.0); Neutrophils # (auto) 5.8 10 ^3/uL (1.6-8.6); Red Blood Cells 2.91 10^6/uL (4.0-5.20); Red Cell Distribution Width 18.8 % (11.8-14.3); White Blood Cell 7.7 10^3/uL (4.4-10.8)
[2022-04-12 04:00] LABS: Calcium 8.3 mg/dL (8.5-10.1); Magnesium 1.9 mg/dL (1.6-2.6); Potassium 3.5 mmol/L (3.5-5.1)
[2022-04-12] MEDS: CHOLESTYRAMINE 4 GM POWDER PO SCH (04:14)
[2022-04-12] MEDS: NOREPINEPHRINE 8 MG/250ML KIT 250 ML IV SCH ×2 (04:31→15:15)
[2022-04-12] MEDS: SODIUM CHL 0.9% IV SCH ×3 (05:44→22:31)
[2022-04-12] MEDS: CEFTOLOZANE TAZOB IV SCH ×3 (05:44→22:31)
[2022-04-12] MEDS: [UNRECOGNIZED DRUG - OTHER] IV SCH ×3 (05:44→22:31)
[2022-04-12] MEDS: metroNIDAZOLE 500 MG TAB GT SCH ×3 (05:44→22:30)
[2022-04-12] MEDS: PANTOPRAZOLE 40 MG/10 ML VIAL INJ IV SCH (10:28)
[2022-04-12] MEDS: B-COMPLEX W/ C & FOLIC ACID(NEPHROVITE TAB) PO SCH (10:28)
[2022-04-12] MEDS: FERROUS SULFATE 300 MG/5 ML ORAL LIQ GT SCH ×2 (10:28→22:30)
[2022-04-12] MEDS: HEPARIN SODIUM (PORCINE) 5000 UNITS/ML 1ML VIAL SC SCH ×2 (10:29→22:00)
[2022-04-12] MEDS: PANCREATIC ENZYMES 4200 UNIT CAP PO SCH ×3 (10:30→17:53)
[2022-04-12] MEDS: FLORASTOR (S. BOULARDII) 250 MG CAP PO SCH (10:31)
[2022-04-12] MEDS: Pro-Stat SF 30ml Vanilla PO SCH (10:31)
[2022-04-12] MEDS: SODIUM CHLOR 0.9% PF (SALINE LOCK) 10ML VIAL/SYR IV SCH ×2 (10:31→22:00)
[2022-04-12] MEDS: MORPHINE SULFATE INJ 2 MG/ml SYRG IV PRN ×3 (14:22→22:32)
[2022-04-12] MEDS ORDERED: VANCOMYCIN 500 MG in D5W 5% 100 ML IV ONE (20:00)
[2022-04-13] VITALS (99 sets, daily range): BP systolic 63–158; BP diastolic 14–64
[2022-04-13] MEDS: CHOLESTYRAMINE 4 GM POWDER PO SCH (04:00)
[2022-04-13] MEDS: MORPHINE SULFATE INJ 2 MG/ml SYRG IV PRN (04:57)
[2022-04-13] MEDS: SODIUM CHL 0.9% IV SCH ×3 (05:37→22:08)
[2022-04-13] MEDS: [UNRECOGNIZED DRUG - OTHER] IV SCH ×3 (05:37→22:08)
[2022-04-13] MEDS: metroNIDAZOLE 500 MG TAB GT SCH ×3 (05:37→21:59)
[2022-04-13] MEDS: CEFTOLOZANE TAZOB IV SCH ×3 (05:37→22:08)
[2022-04-13] MEDS: InsuLIN REG 1unit/0.01ml Soln (100units/ml) SC SCH ×4 (05:38→23:58)
[2022-04-13] MEDS: ACCU-CHEK COMFORT CURVE STRIP VI SCH ×4 (05:38→23:55)
[2022-04-13] MEDS: PANCREATIC ENZYMES 4200 UNIT CAP PO SCH ×3 (08:00→17:45)
[2022-04-13] MEDS: FERROUS SULFATE 300 MG/5 ML ORAL LIQ GT SCH ×2 (09:46→21:59)
[2022-04-13] MEDS: HEPARIN SODIUM (PORCINE) 5000 UNITS/ML 1ML VIAL SC SCH ×2 (09:47→22:02)
[2022-04-13] MEDS: B-COMPLEX W/ C & FOLIC ACID(NEPHROVITE TAB) PO SCH (09:47)
[2022-04-13] MEDS: PANTOPRAZOLE 40 MG/10 ML VIAL INJ IV SCH (09:47)
[2022-04-13] MEDS: Pro-Stat SF 30ml Vanilla PO SCH (09:48)
[2022-04-13] MEDS: FLORASTOR (S. BOULARDII) 250 MG CAP PO SCH (09:48)
[2022-04-13] MEDS: SODIUM CHLOR 0.9% PF (SALINE LOCK) 10ML VIAL/SYR IV SCH ×2 (09:49→22:07)
[2022-04-13] MEDS: NOREPINEPHRINE 8 MG/250ML KIT 250 ML IV SCH (10:23)
[2022-04-14] VITALS (103 sets, daily range): BP systolic 80–144; BP diastolic 11–79
[2022-04-14] MEDS: CHOLESTYRAMINE 4 GM POWDER PO SCH (03:55)
[2022-04-14] MEDS: metroNIDAZOLE 500 MG TAB GT SCH ×3 (06:11→22:02)
[2022-04-14] MEDS: ACCU-CHEK COMFORT CURVE STRIP VI SCH ×3 (06:11→17:43)
[2022-04-14] MEDS: InsuLIN REG 1unit/0.01ml Soln (100units/ml) SC SCH ×3 (06:22→17:44)
[2022-04-14] MEDS: CEFTOLOZANE TAZOB IV SCH (06:24)
[2022-04-14] MEDS: [UNRECOGNIZED DRUG - OTHER] IV SCH (06:24)
[2022-04-14] MEDS: SODIUM CHL 0.9% IV SCH (06:24)
[2022-04-14] MEDS: PANCREATIC ENZYMES 4200 UNIT CAP PO SCH ×2 (08:00→11:31)
[2022-04-14 08:03] LABS: Basophils # (auto) 0.1 10 ^3/uL (0-0.2); Hemoglobin 8.4 g/dL (12.2-16.2); Lymphocytes # (auto) 1.2 10 ^3/uL (0.4-5.4); Monocytes # (auto) 0.4 10 ^3/uL (0-1.3); Neutrophils # (auto) 6.1 10 ^3/uL (1.6-8.6); Red Cell Distribution Width 18.8 % (11.8-14.3)
[2022-04-14 08:04] LABS: Basophils % (auto) 1.2 % (0.0-2.0); Eosinophils # (auto) 0.2 10 ^3/uL (0-0.8); Hematocrit 24.3 % (36.0-46.0); Mean Corpuscular Hemoglobin 31.8 pg (28.0-32.0); Mean Corpuscular Hgb Conc. 34.4 g/dL (32.0-36.0); Mean Corpuscular Volume 92.4 fL (80.0-100.0); Monocytes % (auto) 4.8 % (0.0-12.0); Nucleated Red Blood Cells % 0.1 %; Red Blood Cells 2.63 10^6/uL (4.0-5.20); White Blood Cell 8.1 10^3/uL (4.4-10.8)
[2022-04-14 08:32] LABS: BUN/Creatinine Ratio 4.4; Calcium 8.3 mg/dL (8.5-10.1)
[2022-04-14 08:35] LABS: Potassium 2.8 mmol/L (3.5-5.1)
[2022-04-14] MEDS: Pro-Stat SF 30ml Vanilla PO SCH (10:00)
[2022-04-14] MEDS: PANTOPRAZOLE 40 MG/10 ML VIAL INJ IV SCH (10:00)
[2022-04-14] MEDS: FLORASTOR (S. BOULARDII) 250 MG CAP PO SCH (10:51)
[2022-04-14] MEDS: FERROUS SULFATE 300 MG/5 ML ORAL LIQ GT SCH (10:51)
[2022-04-14] MEDS: B-COMPLEX W/ C & FOLIC ACID(NEPHROVITE TAB) PO SCH (10:51)
[2022-04-14] MEDS: HEPARIN SODIUM (PORCINE) 5000 UNITS/ML 1ML VIAL SC SCH ×2 (10:53→22:03)
[2022-04-14] MEDS ORDERED: POTASSIUM EFFERVESENT TAB 25 MEQ GT ONE (11:15)
[2022-04-14] MEDS: NOREPINEPHRINE 8 MG/250ML KIT 250 ML IV SCH (11:17)
[2022-04-14] MEDS: SODIUM CHLOR 0.9% PF (SALINE LOCK) 10ML VIAL/SYR IV SCH ×2 (11:19→22:13)
[2022-04-14] MEDS: POTASSIUM CHL 20MEQ/100ML 100 ML IV SCH ×4 (13:17→20:34)
[2022-04-14] MEDS: ACETAMINOPHEN 650 mg PER 20.3 mL UD GT PRN (22:29)
[2022-04-15] VITALS (97 sets, daily range): BP systolic 58–157; BP diastolic 15–98
[2022-04-15] MEDS: ACETAMINOPHEN 650 mg PER 20.3 mL UD GT PRN ×2 (00:30→17:56)
[2022-04-15] MEDS: CHOLESTYRAMINE 4 GM POWDER PO SCH (03:43)
[2022-04-15 04:44] LABS: Basophils # (auto) 0.1 10 ^3/uL (0-0.2); Basophils % (auto) 1.2 % (0.0-2.0); Eosinophils # (auto) 0.4 10 ^3/uL (0-0.8); Eosinophils % (auto) 3.8 % (0.0-7.0); Hematocrit 25.5 % (36.0-46.0); Hemoglobin 8.9 g/dL (12.2-16.2); Lymphocytes # (auto) 1.3 10 ^3/uL (0.4-5.4); Lymphocytes % (auto) 13.6 % (10.0-50.0); Mean Corpuscular Hemoglobin 32.5 pg (28.0-32.0); Mean Corpuscular Hgb Conc. 34.9 g/dL (32.0-36.0); Monocytes # (auto) 0.4 10 ^3/uL (0-1.3); Monocytes % (auto) 4.1 % (0.0-12.0); Neutrophils # (auto) 7.3 10 ^3/uL (1.6-8.6); Neutrophils % (auto) 77.3 % (37.0-80.0); Red Blood Cells 2.74 10^6/uL (4.0-5.20); Red Cell Distribution Width 19.1 % (11.8-14.3); White Blood Cell 9.5 10^3/uL (4.4-10.8)
[2022-04-15] MEDS ORDERED: SODIUM CHL 0.9% 1000 ML BAG XX ONE (05:15)
[2022-04-15] MEDS: InsuLIN REG 1unit/0.01ml Soln (100units/ml) SC SCH ×5 (06:00→23:33)
[2022-04-15] MEDS: metroNIDAZOLE 500 MG TAB GT SCH (06:11)
[2022-04-15] MEDS: ACCU-CHEK COMFORT CURVE STRIP VI SCH ×5 (06:18→23:35)
[2022-04-15 07:37] LABS: Albumin 2.2 g/dL (3.4-5.0); Calcium 8.3 mg/dL (8.5-10.1); Potassium 4.4 mmol/L (3.5-5.1)
[2022-04-15 07:40] LABS: BUN/Creatinine Ratio 5.2; Bilirubin, Total 2.1 mg/dL (0.2-1.0); Total Protein 6.8 g/dL (6.4-8.2)
[2022-04-15] MEDS: levoFLOXacin 250MG 50 ML IV SCH (09:39)
[2022-04-15] MEDS: B-COMPLEX W/ C & FOLIC ACID(NEPHROVITE TAB) PO SCH (09:40)
[2022-04-15] MEDS: PANTOPRAZOLE 40 MG/10 ML VIAL INJ IV SCH (09:40)
[2022-04-15] MEDS: FLORASTOR (S. BOULARDII) 250 MG CAP PO SCH (09:40)
[2022-04-15] MEDS: HEPARIN SODIUM (PORCINE) 5000 UNITS/ML 1ML VIAL SC SCH ×2 (09:41→21:54)
[2022-04-15] MEDS: SODIUM CHLOR 0.9% PF (SALINE LOCK) 10ML VIAL/SYR IV SCH ×2 (09:41→21:54)
[2022-04-15] MEDS: Pro-Stat SF 30ml Vanilla PO SCH (09:41)
[2022-04-15] MEDS: NOREPINEPHRINE 8 MG/250ML KIT 250 ML IV SCH (15:00)
[2022-04-15] MEDS ORDERED: EPOETIN ALFA-EPBX 10,000 UNIT/1ML VIAL SC ONE (21:00)
[2022-04-16] VITALS (103 sets, daily range): BP systolic 91–157; BP diastolic 17–95
[2022-04-16] MEDS: CHOLESTYRAMINE 4 GM POWDER PO SCH (04:11)
[2022-04-16] MEDS: InsuLIN REG 1unit/0.01ml Soln (100units/ml) SC SCH ×3 (06:00→18:00)
[2022-04-16] MEDS: ACCU-CHEK COMFORT CURVE STRIP VI SCH ×3 (06:00→17:56)
[2022-04-16] MEDS: ACETAMINOPHEN 650 mg PER 20.3 mL UD GT PRN (06:33)
[2022-04-16] MEDS: NOREPINEPHRINE 8 MG/250ML KIT 250 ML IV SCH (08:39)
[2022-04-16] MEDS: B-COMPLEX W/ C & FOLIC ACID(NEPHROVITE TAB) PO SCH (09:28)
[2022-04-16] MEDS: PANTOPRAZOLE 40 MG/10 ML VIAL INJ IV SCH (09:28)
[2022-04-16] MEDS: Pro-Stat SF 30ml Vanilla PO SCH (09:29)
[2022-04-16] MEDS: FLORASTOR (S. BOULARDII) 250 MG CAP PO SCH (09:29)
[2022-04-16] MEDS: SODIUM CHLOR 0.9% PF (SALINE LOCK) 10ML VIAL/SYR IV SCH ×2 (09:29→21:44)
[2022-04-16] MEDS: HEPARIN SODIUM (PORCINE) 5000 UNITS/ML 1ML VIAL SC SCH ×2 (09:39→21:47)
[2022-04-17] VITALS (102 sets, daily range): BP systolic 87–153; BP diastolic 18–63
[2022-04-17 03:51] LABS: Basophils # (auto) 0.1 10 ^3/uL (0-0.2); Eosinophils # (auto) 0.2 10 ^3/uL (0-0.8); Neutrophils # (auto) 5.6 10 ^3/uL (1.6-8.6)
[2022-04-17 03:53] LABS: Basophils % (auto) 1.4 % (0.0-2.0); Eosinophils % (auto) 3.3 % (0.0-7.0); Hemoglobin 8.2 g/dL (12.2-16.2); Lymphocytes # (auto) 1.2 10 ^3/uL (0.4-5.4); Mean Corpuscular Hemoglobin 32.3 pg (28.0-32.0); Mean Corpuscular Hgb Conc. 34.1 g/dL (32.0-36.0); Mean Corpuscular Volume 94.7 fL (80.0-100.0); Monocytes # (auto) 0.3 10 ^3/uL (0-1.3); Monocytes % (auto) 4.5 % (0.0-12.0); Neutrophils % (auto) 74.8 % (37.0-80.0); Nucleated Red Blood Cells % 0.1 %; Red Blood Cells 2.54 10^6/uL (4.0-5.20); White Blood Cell 7.5 10^3/uL (4.4-10.8)
[2022-04-17 04:09] LABS: Calcium 8.2 mg/dL (8.5-10.1)
[2022-04-17 04:12] LABS: BUN/Creatinine Ratio 4.1
[2022-04-17] MEDS: InsuLIN REG 1unit/0.01ml Soln (100units/ml) SC SCH ×4 (06:00→18:00)
[2022-04-17] MEDS: ACCU-CHEK COMFORT CURVE STRIP VI SCH ×4 (06:00→18:00)
[2022-04-17] MEDS: ACETAMINOPHEN 650 mg PER 20.3 mL UD GT PRN ×3 (06:37→18:40)
[2022-04-17] MEDS ORDERED: POTASSIUM EFFERVESENT TAB 25 MEQ PO ONE (08:45)
[2022-04-17] MEDS: FLORASTOR (S. BOULARDII) 250 MG CAP PO SCH (10:00)
[2022-04-17] MEDS: B-COMPLEX W/ C & FOLIC ACID(NEPHROVITE TAB) PO SCH (10:09)
[2022-04-17] MEDS: PANTOPRAZOLE 40 MG/10 ML VIAL INJ IV SCH (10:10)
[2022-04-17] MEDS: POTASSIUM CHL 20MEQ/100ML 100 ML IV SCH ×2 (10:11→12:11)
[2022-04-17] MEDS: levoFLOXacin 250MG 50 ML IV SCH (10:11)
[2022-04-17] MEDS: HEPARIN SODIUM (PORCINE) 5000 UNITS/ML 1ML VIAL SC SCH ×2 (10:19→21:44)
[2022-04-17] MEDS: Pro-Stat SF 30ml Vanilla PO SCH (10:19)
[2022-04-17] MEDS: SODIUM CHLOR 0.9% PF (SALINE LOCK) 10ML VIAL/SYR IV SCH ×2 (10:20→21:43)
[2022-04-17] MEDS ORDERED: VANCOMYCIN 500 MG in D5W 5% 100 ML IV ONE (11:00)
[2022-04-17] MEDS: NOREPINEPHRINE 8 MG/250ML KIT 250 ML IV SCH (15:00)
[2022-04-17] MEDS ORDERED: SODIUM CHL 0.9% 1000 ML BAG XX ONE (15:45)
[2022-04-17] MEDS ORDERED: EPOETIN ALFA-EPBX 10,000 UNIT/1ML VIAL SC ONE (21:00)
[2022-04-18] VITALS (91 sets, daily range): BP systolic 82–169; BP diastolic 17–82
[2022-04-18] MEDS: ACCU-CHEK COMFORT CURVE STRIP VI SCH ×5 (00:29→23:56)
[2022-04-18] MEDS: MORPHINE SULFATE INJ 2 MG/ml SYRG IV PRN ×3 (02:22→20:06)
[2022-04-18 03:59] LABS: Eosinophils # (auto) 0.1 10 ^3/uL (0-0.8); Eosinophils % (auto) 1.8 % (0.0-7.0); Hematocrit 23.9 % (36.0-46.0); Mean Corpuscular Volume 94.6 fL (80.0-100.0)
[2022-04-18 04:01] LABS: Basophils # (auto) 0.1 10 ^3/uL (0-0.2); Basophils % (auto) 1.2 % (0.0-2.0); Lymphocytes % (auto) 15.4 % (10.0-50.0); Mean Corpuscular Hemoglobin 31.8 pg (28.0-32.0); Mean Corpuscular Hgb Conc. 33.6 g/dL (32.0-36.0); Monocytes # (auto) 0.3 10 ^3/uL (0-1.3); Monocytes % (auto) 5.3 % (0.0-12.0); Neutrophils # (auto) 4.8 10 ^3/uL (1.6-8.6); Neutrophils % (auto) 76.3 % (37.0-80.0); Nucleated Red Blood Cells % 0.1 %; Red Blood Cells 2.53 10^6/uL (4.0-5.20); Red Cell Distribution Width 19.3 % (11.8-14.3); White Blood Cell 6.3 10^3/uL (4.4-10.8)
[2022-04-18 04:20] LABS: BUN/Creatinine Ratio 3.2; Calcium 8.1 mg/dL (8.5-10.1); Potassium 3.6 mmol/L (3.5-5.1)
[2022-04-18] MEDS: InsuLIN REG 1unit/0.01ml Soln (100units/ml) SC SCH ×5 (06:00→23:59)
[2022-04-18] MEDS: PANTOPRAZOLE 40 MG/10 ML VIAL INJ IV SCH (09:26)
[2022-04-18] MEDS: B-COMPLEX W/ C & FOLIC ACID(NEPHROVITE TAB) PO SCH (09:26)
[2022-04-18] MEDS: SODIUM CHLOR 0.9% PF (SALINE LOCK) 10ML VIAL/SYR IV SCH ×2 (09:26→21:54)
[2022-04-18] MEDS: FLORASTOR (S. BOULARDII) 250 MG CAP PO SCH (09:26)
[2022-04-18] MEDS: HEPARIN SODIUM (PORCINE) 5000 UNITS/ML 1ML VIAL SC SCH ×2 (09:29→22:13)
[2022-04-18] MEDS: Pro-Stat SF 30ml Vanilla PO SCH (09:50)
[2022-04-18] MEDS: NOREPINEPHRINE 8 MG/250ML KIT 250 ML IV SCH (18:13)
[2022-04-19] VITALS (66 sets, daily range): BP systolic 38–171; BP diastolic 20–117
[2022-04-19] MEDS: MORPHINE SULFATE INJ 2 MG/ml SYRG IV PRN ×3 (02:15→23:28)
[2022-04-19] MEDS: ACCU-CHEK COMFORT CURVE STRIP VI SCH ×3 (06:00→23:39)
[2022-04-19] MEDS: InsuLIN REG 1unit/0.01ml Soln (100units/ml) SC SCH ×3 (06:45→18:00)
[2022-04-19] MEDS: levoFLOXacin 250MG 50 ML IV SCH (09:38)
[2022-04-19] MEDS: B-COMPLEX W/ C & FOLIC ACID(NEPHROVITE TAB) PO SCH (09:38)
[2022-04-19] MEDS: FLORASTOR (S. BOULARDII) 250 MG CAP PO SCH (09:38)
[2022-04-19] MEDS: PANTOPRAZOLE 40 MG/10 ML VIAL INJ IV SCH (09:38)
[2022-04-19] MEDS: HEPARIN SODIUM (PORCINE) 5000 UNITS/ML 1ML VIAL SC SCH ×2 (09:45→21:25)
[2022-04-19] MEDS: Pro-Stat SF 30ml Vanilla PO SCH (10:00)
[2022-04-19] MEDS: SODIUM CHLOR 0.9% PF (SALINE LOCK) 10ML VIAL/SYR IV SCH ×2 (10:00→21:18)
[2022-04-19] MEDS ORDERED: SODIUM CHL 0.9% 1000 ML BAG XX ONE (14:45)
[2022-04-19] MEDS: NOREPINEPHRINE 8 MG/250ML KIT 250 ML IV SCH (20:15)
[2022-04-19] MEDS ORDERED: EPOETIN ALFA-EPBX 10,000 UNIT/1ML VIAL SC ONE (21:00)
[2022-04-20] VITALS (98 sets, daily range): BP systolic 96–148; BP diastolic 18–79
[2022-04-20 04:37] LABS: Basophils # (auto) 0.1 10 ^3/uL (0-0.2); Basophils % (auto) 0.8 % (0.0-2.0); Eosinophils # (auto) 0.1 10 ^3/uL (0-0.8); Hematocrit 27.4 % (36.0-46.0); Hemoglobin 9.3 g/dL (12.2-16.2); Lymphocytes # (auto) 1.2 10 ^3/uL (0.4-5.4); Lymphocytes % (auto) 13.8 % (10.0-50.0); Mean Corpuscular Volume 94.2 fL (80.0-100.0); Monocytes # (auto) 0.5 10 ^3/uL (0-1.3); Monocytes % (auto) 5.3 % (0.0-12.0); Neutrophils # (auto) 6.9 10 ^3/uL (1.6-8.6); Neutrophils % (auto) 79.1 % (37.0-80.0); Red Blood Cells 2.91 10^6/uL (4.0-5.20); Red Cell Distribution Width 19.8 % (11.8-14.3); White Blood Cell 8.7 10^3/uL (4.4-10.8)
[2022-04-20] MEDS: ACCU-CHEK COMFORT CURVE STRIP VI SCH ×4 (05:15→23:52)
[2022-04-20] MEDS: InsuLIN REG 1unit/0.01ml Soln (100units/ml) SC SCH ×5 (05:21→23:53)
[2022-04-20 05:27] LABS: BUN/Creatinine Ratio 3.1; Potassium 3.3 mmol/L (3.5-5.1)
[2022-04-20] MEDS: MORPHINE SULFATE INJ 2 MG/ml SYRG IV PRN ×2 (06:11→10:17)
[2022-04-20] MEDS: PANTOPRAZOLE 40 MG/10 ML VIAL INJ IV SCH (09:44)
[2022-04-20] MEDS: B-COMPLEX W/ C & FOLIC ACID(NEPHROVITE TAB) PO SCH (09:44)
[2022-04-20] MEDS: Pro-Stat SF 30ml Vanilla PO SCH (09:45)
[2022-04-20] MEDS: HEPARIN SODIUM (PORCINE) 5000 UNITS/ML 1ML VIAL SC SCH ×2 (09:49→22:40)
[2022-04-20] MEDS: SODIUM CHLOR 0.9% PF (SALINE LOCK) 10ML VIAL/SYR IV SCH ×2 (09:50→22:41)
[2022-04-20] MEDS: levoFLOXacin 250MG 50 ML IV SCH (09:53)
[2022-04-20] MEDS: ALBUTEROL SULF 2.5 MG/0.5ML(0.5%) NEB SOLN NEB PRN (14:18)
[2022-04-20] MEDS: NOREPINEPHRINE 8 MG/250ML KIT 250 ML IV SCH (15:00)
[2022-04-21] VITALS (98 sets, daily range): BP systolic 52–174; BP diastolic 21–95
[2022-04-21] MEDS: NOREPINEPHRINE 8 MG/250ML KIT 250 ML IV SCH ×2 (01:26→21:21)
[2022-04-21] MEDS: MORPHINE SULFATE INJ 2 MG/ml SYRG IV PRN (02:24)
[2022-04-21 04:16] LABS: Calcium 8.5 mg/dL (8.5-10.1); Potassium 3.6 mmol/L (3.5-5.1)
[2022-04-21] MEDS: ACCU-CHEK COMFORT CURVE STRIP VI SCH ×4 (05:51→23:48)
[2022-04-21] MEDS: InsuLIN REG 1unit/0.01ml Soln (100units/ml) SC SCH ×4 (05:52→23:45)
[2022-04-21] MEDS: levoFLOXacin 250MG 50 ML IV SCH (09:44)
[2022-04-21] MEDS: B-COMPLEX W/ C & FOLIC ACID(NEPHROVITE TAB) PO SCH (09:44)
[2022-04-21] MEDS: PANTOPRAZOLE 40 MG/10 ML VIAL INJ IV SCH (09:44)
[2022-04-21] MEDS: Pro-Stat SF 30ml Vanilla PO SCH (09:45)
[2022-04-21] MEDS: SODIUM CHLOR 0.9% PF (SALINE LOCK) 10ML VIAL/SYR IV SCH ×2 (09:45→21:46)
[2022-04-21] MEDS: HEPARIN SODIUM (PORCINE) 5000 UNITS/ML 1ML VIAL SC SCH ×2 (09:55→21:44)
[2022-04-21] MEDS: Vital AF 1.2 Cal 1 liter bottle GT SCH (22:55)
[2022-04-22] VITALS (103 sets, daily range): BP systolic 89–144; BP diastolic 18–125
[2022-04-22] MEDS: ALBUTEROL SULF 2.5 MG/0.5ML(0.5%) NEB SOLN NEB PRN (02:54)
[2022-04-22 04:21] LABS: BUN/Creatinine Ratio 4.9; Calcium 8.9 mg/dL (8.5-10.1); Potassium 3.6 mmol/L (3.5-5.1)
[2022-04-22] MEDS: ACCU-CHEK COMFORT CURVE STRIP VI SCH ×3 (06:34→17:50)
[2022-04-22] MEDS: InsuLIN REG 1unit/0.01ml Soln (100units/ml) SC SCH ×3 (06:35→17:50)
[2022-04-22] MEDS: MORPHINE SULFATE INJ 2 MG/ml SYRG IV PRN (07:21)
[2022-04-22] MEDS: B-COMPLEX W/ C & FOLIC ACID(NEPHROVITE TAB) PO SCH (10:00)
[2022-04-22] MEDS: PANTOPRAZOLE 40 MG/10 ML VIAL INJ IV SCH (10:13)
[2022-04-22] MEDS: HEPARIN SODIUM (PORCINE) 5000 UNITS/ML 1ML VIAL SC SCH ×2 (10:13→22:05)
[2022-04-22] MEDS: levoFLOXacin 250MG 50 ML IV SCH (10:13)
[2022-04-22] MEDS: Pro-Stat SF 30ml Vanilla PO SCH (10:14)
[2022-04-22] MEDS: SODIUM CHLOR 0.9% PF (SALINE LOCK) 10ML VIAL/SYR IV SCH ×2 (10:14→22:11)
[2022-04-22] MEDS: NOREPINEPHRINE 8 MG/250ML KIT 250 ML IV SCH (21:16)
[2022-04-22] MEDS: Vital AF 1.2 Cal 1 liter bottle GT SCH (21:17)
[2022-04-23] VITALS (90 sets, daily range): BP systolic 60–149; BP diastolic 17–86
[2022-04-23] MEDS: ACCU-CHEK COMFORT CURVE STRIP VI SCH ×4 (00:03→17:43)
[2022-04-23] MEDS: InsuLIN REG 1unit/0.01ml Soln (100units/ml) SC SCH ×4 (00:06→17:43)
[2022-04-23] MEDS: ACETAMINOPHEN 650 mg PER 20.3 mL UD GT PRN ×2 (00:08→09:30)
[2022-04-23 04:44] LABS: Basophils # (auto) 0.1 10 ^3/uL (0-0.2); Eosinophils # (auto) 0.1 10 ^3/uL (0-0.8); Hematocrit 21.8 % (36.0-46.0); Lymphocytes # (auto) 0.8 10 ^3/uL (0.4-5.4); Mean Corpuscular Volume 95.1 fL (80.0-100.0); Monocytes # (auto) 0.4 10 ^3/uL (0-1.3); Red Blood Cells 2.29 10^6/uL (4.0-5.20); White Blood Cell 7.9 10^3/uL (4.4-10.8)
[2022-04-23 04:46] LABS: Basophils % (auto) 0.9 % (0.0-2.0); Eosinophils % (auto) 1.3 % (0.0-7.0); Hemoglobin 7.7 g/dL (12.2-16.2); Lymphocytes % (auto) 10.3 % (10.0-50.0); Mean Corpuscular Hemoglobin 33.5 pg (28.0-32.0); Mean Corpuscular Hgb Conc. 35.2 g/dL (32.0-36.0); Monocytes % (auto) 5.6 % (0.0-12.0); Neutrophils # (auto) 6.5 10 ^3/uL (1.6-8.6); Neutrophils % (auto) 81.9 % (37.0-80.0)
[2022-04-23 04:48] LABS: Red Cell Distribution Width 20.1 % (11.8-14.3)
[2022-04-23] MEDS: B-COMPLEX W/ C & FOLIC ACID(NEPHROVITE TAB) PO SCH (09:56)
[2022-04-23] MEDS: PANTOPRAZOLE 40 MG/10 ML VIAL INJ IV SCH (09:56)
[2022-04-23] MEDS: SODIUM CHLOR 0.9% PF (SALINE LOCK) 10ML VIAL/SYR IV SCH ×2 (09:57→22:15)
[2022-04-23] MEDS: HEPARIN SODIUM (PORCINE) 5000 UNITS/ML 1ML VIAL SC SCH (09:57)
[2022-04-23] MEDS: levoFLOXacin 250MG 50 ML IV SCH (09:57)
[2022-04-23] MEDS: Pro-Stat SF 30ml Vanilla PO SCH (09:57)
[2022-04-23] MEDS ORDERED: METOCLOPRAMIDE HCL 5MG/ml INJ 2ml VIAL IV PRN (11:00)
[2022-04-23] MEDS ORDERED: metroNIDAZOLE 500 MG TAB PO ONE (14:15)
[2022-04-23] MEDS: metroNIDAZOLE 500 MG TAB PO SCH (22:15)
[2022-04-24] VITALS (79 sets, daily range): BP systolic 64–145; BP diastolic 11–101
[2022-04-24] MEDS: ACCU-CHEK COMFORT CURVE STRIP VI SCH ×5 (00:15→23:26)
[2022-04-24] MEDS: MORPHINE SULFATE INJ 2 MG/ml SYRG IV PRN (00:37)
[2022-04-24] MEDS: CHOLESTYRAMINE 4 GM POWDER GT SCH ×2 (04:52→11:00)
[2022-04-24 05:41] LABS: Hemoglobin 8.1 g/dL (12.2-16.2); White Blood Cell 6.8 10^3/uL (4.4-10.8)
[2022-04-24 05:43] LABS: Hematocrit 23.3 % (36.0-46.0); Mean Corpuscular Hemoglobin 33.3 pg (28.0-32.0); Mean Corpuscular Hgb Conc. 34.8 g/dL (32.0-36.0); Mean Corpuscular Volume 95.6 fL (80.0-100.0); Red Blood Cells 2.43 10^6/uL (4.0-5.20)
[2022-04-24 05:45] LABS: Red Cell Distribution Width 20.2 % (11.8-14.3)
[2022-04-24] MEDS: metroNIDAZOLE 500 MG TAB PO SCH ×3 (05:46→21:36)
[2022-04-24 05:47] LABS: Band Neutrophils % (manual) 0; Basophils % (manual) 0 (0.0-2.0); Blast Cells 0; Metamyelocytes % 0; Myelocytes % 0; Promyelocytes % 0; Reactive Lymphocytes 0
[2022-04-24] MEDS: InsuLIN REG 1unit/0.01ml Soln (100units/ml) SC SCH ×5 (05:51→23:26)
[2022-04-24 05:53] LABS: Potassium 3.4 mmol/L (3.5-5.1)
[2022-04-24 06:05] LABS: BUN/Creatinine Ratio 5.2; Calcium 9.1 mg/dL (8.5-10.1)
[2022-04-24] MEDS: NOREPINEPHRINE 8 MG/250ML KIT 250 ML IV SCH (06:49)
[2022-04-24] MEDS ORDERED: EPOETIN ALFA-EPBX 10,000 UNIT/1ML VIAL IV ONE (08:45)
[2022-04-24 09:13] LABS: Eosinophils % (manual) 1 (0-7); Lymphocytes % (manual) 12 (10.0-50.0); Monocytes % (manual) 6 (0-12)
[2022-04-24] MEDS: SODIUM CHLOR 0.9% PF (SALINE LOCK) 10ML VIAL/SYR IV SCH ×2 (10:00→21:36)
[2022-04-24] MEDS: Pro-Stat SF 30ml Vanilla PO SCH (10:00)
[2022-04-24] MEDS: levoFLOXacin 250MG 50 ML IV SCH (11:20)
[2022-04-24] MEDS: PANTOPRAZOLE 40 MG/10 ML VIAL INJ IV SCH (11:21)
[2022-04-24] MEDS: FLORASTOR (S. BOULARDII) 250 MG CAP PO SCH (11:21)
[2022-04-24] MEDS: B-COMPLEX W/ C & FOLIC ACID(NEPHROVITE TAB) PO SCH (11:22)
[2022-04-24] MEDS: ACETAMINOPHEN 650 mg PER 20.3 mL UD GT PRN (20:40)
[2022-04-25] VITALS (88 sets, daily range): BP systolic 78–127; BP diastolic 13–67
[2022-04-25] MEDS: MORPHINE SULFATE INJ 2 MG/ml SYRG IV PRN ×4 (04:48→16:55)
[2022-04-25] MEDS: InsuLIN REG 1unit/0.01ml Soln (100units/ml) SC SCH ×4 (05:16→23:33)
[2022-04-25] MEDS: ACCU-CHEK COMFORT CURVE STRIP VI SCH ×4 (05:16→23:33)
[2022-04-25] MEDS: metroNIDAZOLE 500 MG TAB PO SCH (05:16)
[2022-04-25] MEDS: PANTOPRAZOLE 40 MG/10 ML VIAL INJ IV SCH (09:17)
[2022-04-25] MEDS: FLORASTOR (S. BOULARDII) 250 MG CAP PO SCH (09:18)
[2022-04-25] MEDS: B-COMPLEX W/ C & FOLIC ACID(NEPHROVITE TAB) PO SCH (09:18)
[2022-04-25] MEDS: SODIUM CHLOR 0.9% PF (SALINE LOCK) 10ML VIAL/SYR IV SCH ×2 (09:19→21:16)
[2022-04-25] MEDS: Pro-Stat SF 30ml Vanilla PO SCH (10:00)
[2022-04-25] MEDS: NOREPINEPHRINE 8 MG/250ML KIT 250 ML IV SCH (15:00)
[2022-04-25] MEDS ORDERED: HYDROcodone-ACET 10/325MG TAB PO PRN (21:15)
[2022-04-26] VITALS (89 sets, daily range): BP systolic 45–133; BP diastolic 16–69
[2022-04-26 04:05] LABS: Basophils # (auto) 0 10 ^3/uL (0-0.2); Basophils % (auto) 0.4 % (0.0-2.0); Eosinophils # (auto) 0.2 10 ^3/uL (0-0.8); Eosinophils % (auto) 1.7 % (0.0-7.0); Hematocrit 24.8 % (36.0-46.0); Hemoglobin 8.5 g/dL (12.2-16.2); Lymphocytes % (auto) 10.8 % (10.0-50.0); Mean Corpuscular Hemoglobin 33.4 pg (28.0-32.0); Mean Corpuscular Hgb Conc. 34.3 g/dL (32.0-36.0); Mean Corpuscular Volume 97.3 fL (80.0-100.0); Monocytes # (auto) 0.6 10 ^3/uL (0-1.3); Monocytes % (auto) 5.8 % (0.0-12.0); Neutrophils # (auto) 7.7 10 ^3/uL (1.6-8.6); Neutrophils % (auto) 81.3 % (37.0-80.0); Red Blood Cells 2.55 10^6/uL (4.0-5.20); Red Cell Distribution Width 19.8 % (11.8-14.3); White Blood Cell 9.5 10^3/uL (4.4-10.8)
[2022-04-26 04:42] LABS: Calcium 8.5 mg/dL (8.5-10.1); Potassium 3.1 mmol/L (3.5-5.1)
[2022-04-26 04:44] LABS: BUN/Creatinine Ratio 7.5
[2022-04-26] MEDS: ACCU-CHEK COMFORT CURVE STRIP VI SCH ×3 (05:41→23:37)
[2022-04-26] MEDS: InsuLIN REG 1unit/0.01ml Soln (100units/ml) SC SCH ×3 (05:41→23:37)
[2022-04-26] MEDS: levoFLOXacin 250MG 50 ML IV SCH (10:00)
[2022-04-26] MEDS: FLORASTOR (S. BOULARDII) 250 MG CAP PO SCH (10:00)
[2022-04-26] MEDS: PANTOPRAZOLE 40 MG/10 ML VIAL INJ IV SCH (10:00)
[2022-04-26] MEDS: SODIUM CHLOR 0.9% PF (SALINE LOCK) 10ML VIAL/SYR IV SCH ×2 (10:00→21:58)
[2022-04-26] MEDS: B-COMPLEX W/ C & FOLIC ACID(NEPHROVITE TAB) PO SCH (10:00)
[2022-04-26] MEDS: Pro-Stat SF 30ml Vanilla PO SCH (20:00)
[2022-04-26] MEDS: NOREPINEPHRINE 8 MG/250ML KIT 250 ML IV SCH ×2 (20:00→20:46)
[2022-04-27] VITALS (96 sets, daily range): BP systolic 82–182; BP diastolic 11–128
[2022-04-27] MEDS: MORPHINE SULFATE INJ 2 MG/ml SYRG IV PRN ×2 (04:17→17:04)
[2022-04-27 04:32] LABS: BUN/Creatinine Ratio 5.9; Calcium 8.9 mg/dL (8.5-10.1); Potassium 3.3 mmol/L (3.5-5.1)
[2022-04-27] MEDS: ACCU-CHEK COMFORT CURVE STRIP VI SCH ×3 (05:07→17:15)
[2022-04-27] MEDS: InsuLIN REG 1unit/0.01ml Soln (100units/ml) SC SCH ×3 (05:07→17:14)
[2022-04-27] MEDS: HYDROcodone-ACET 5/325MG TAB PO PRN (10:09)
[2022-04-27] MEDS: B-COMPLEX W/ C & FOLIC ACID(NEPHROVITE TAB) PO SCH (10:10)
[2022-04-27] MEDS: PANCREATIC ENZYMES 4200 UNIT CAP PO SCH ×2 (10:10→18:32)
[2022-04-27] MEDS: PANTOPRAZOLE 40 MG/10 ML VIAL INJ IV SCH (10:10)
[2022-04-27] MEDS: FLORASTOR (S. BOULARDII) 250 MG CAP PO SCH (10:10)
[2022-04-27] MEDS: SODIUM CHLOR 0.9% PF (SALINE LOCK) 10ML VIAL/SYR IV SCH ×2 (10:11→22:30)
[2022-04-27] MEDS: Pro-Stat SF 30ml Vanilla PO SCH (10:12)
[2022-04-28] VITALS (61 sets, daily range): BP systolic 77–135; BP diastolic 15–105
[2022-04-28] MEDS: ACCU-CHEK COMFORT CURVE STRIP VI SCH ×4 (00:45→18:20)
[2022-04-28] MEDS: InsuLIN REG 1unit/0.01ml Soln (100units/ml) SC SCH ×4 (00:46→18:20)
[2022-04-28] MEDS: MORPHINE SULFATE INJ 2 MG/ml SYRG IV PRN ×3 (02:31→23:27)
[2022-04-28 03:47] LABS: Eosinophils # (auto) 0.1 10 ^3/uL (0-0.8); Monocytes # (auto) 0.3 10 ^3/uL (0-1.3)
[2022-04-28 03:48] LABS: Basophils # (auto) 0.1 10 ^3/uL (0-0.2); Basophils % (auto) 1.8 % (0.0-2.0); Eosinophils % (auto) 0.9 % (0.0-7.0); Hematocrit 24.8 % (36.0-46.0); Hemoglobin 8.4 g/dL (12.2-16.2); Lymphocytes # (auto) 0.7 10 ^3/uL (0.4-5.4); Lymphocytes % (auto) 9.5 % (10.0-50.0); Mean Corpuscular Hemoglobin 33.4 pg (28.0-32.0); Mean Corpuscular Volume 98.1 fL (80.0-100.0); Monocytes % (auto) 4.6 % (0.0-12.0); Neutrophils # (auto) 5.8 10 ^3/uL (1.6-8.6); Neutrophils % (auto) 83.2 % (37.0-80.0); Red Blood Cells 2.53 10^6/uL (4.0-5.20)
[2022-04-28 03:49] LABS: Red Cell Distribution Width 20.1 % (11.8-14.3)
[2022-04-28 04:02] LABS: Albumin 2.5 g/dL (3.4-5.0); Calcium 8.8 mg/dL (8.5-10.1); Potassium 3.4 mmol/L (3.5-5.1)
[2022-04-28 04:07] LABS: BUN/Creatinine Ratio 6.9; Bilirubin, Total 11.1 mg/dL (0.2-1.0); Total Protein 6.7 g/dL (6.4-8.2)
[2022-04-28] MEDS: HYDROcodone-ACET 5/325MG TAB PO PRN (07:32)
[2022-04-28] MEDS ORDERED: AMIODARONE HCL 150 MG in D5W 5% 100 ML IV ONE (08:00)
[2022-04-28] MEDS ORDERED: AMIODARONE 450mg/250ml AE 250 ML IV SCH (08:15)
[2022-04-28] MEDS: B-COMPLEX W/ C & FOLIC ACID(NEPHROVITE TAB) PO SCH (10:00)
[2022-04-28] MEDS: levoFLOXacin 250MG 50 ML IV SCH (10:00)
[2022-04-28] MEDS: PANTOPRAZOLE 40 MG/10 ML VIAL INJ IV SCH (10:00)
[2022-04-28] MEDS: PANCREATIC ENZYMES 4200 UNIT CAP PO SCH (10:01)
[2022-04-28] MEDS: FLORASTOR (S. BOULARDII) 250 MG CAP PO SCH (10:01)
[2022-04-28] MEDS: Pro-Stat SF 30ml Vanilla PO SCH (10:03)
[2022-04-28] MEDS: SODIUM CHLOR 0.9% PF (SALINE LOCK) 10ML VIAL/SYR IV SCH ×2 (10:03→23:00)
[2022-04-28] MEDS ORDERED: ACETAMINOPHEN 650 mg PER 20.3 mL UD GT PRN (14:15)
[2022-04-28] MEDS: AMIODARONE 450mg/250ml AE 250 ML IV SCH (15:05)
[2022-04-28] MEDS: NOREPINEPHRINE 8 MG/250ML KIT 250 ML IV SCH (16:50)
[2022-04-29] VITALS (59 sets, daily range): BP systolic 94–165; BP diastolic 13–138
[2022-04-29] MEDS: ACCU-CHEK COMFORT CURVE STRIP VI SCH ×4 (00:43→18:00)
[2022-04-29] MEDS: InsuLIN REG 1unit/0.01ml Soln (100units/ml) SC SCH ×4 (00:50→18:00)
[2022-04-29] MEDS: AMIODARONE 450mg/250ml AE 250 ML IV SCH ×2 (05:15→15:08)
[2022-04-29 06:51] LABS: Albumin 2.2 g/dL (3.4-5.0); Potassium 3.5 mmol/L (3.5-5.1)
[2022-04-29 06:54] LABS: BUN/Creatinine Ratio 9.8; Bilirubin, Total 11.6 mg/dL (0.2-1.0); Total Protein 6.3 g/dL (6.4-8.2)
[2022-04-29] MEDS: PANTOPRAZOLE 40 MG/10 ML VIAL INJ IV SCH (09:40)
[2022-04-29] MEDS: B-COMPLEX W/ C & FOLIC ACID(NEPHROVITE TAB) PO SCH (09:40)
[2022-04-29] MEDS: FLORASTOR (S. BOULARDII) 250 MG CAP PO SCH (09:40)
[2022-04-29] MEDS: SODIUM CHLOR 0.9% PF (SALINE LOCK) 10ML VIAL/SYR IV SCH (09:41)
[2022-04-29] MEDS: Vital AF 1.2 Cal 1 liter bottle GT SCH (09:42)
[2022-04-29] MEDS: Pro-Stat SF 30ml Vanilla PO SCH (09:42)
[2022-04-29] MEDS ORDERED: SODIUM CHL 0.9% 1000 ML BAG XX ONE (11:30)
[2022-04-29] MEDS: ALBUMIN 25% 100 ML IV PRN ×3 (11:38→13:37)
[2022-04-29] MEDS: HYDROcodone-ACET 5/325MG TAB PO PRN (12:12)
[2022-04-29] MEDS: NOREPINEPHRINE 8 MG/250ML KIT 250 ML IV SCH (13:34)
[2022-04-29] MEDS ORDERED: EPOETIN ALFA-EPBX 10,000 UNIT/1ML VIAL SC ONE (21:00)
== END 2022-04-29 22:32 | DRG 5 ==
LOC: ER 01:54 → TELE 10:02 → TELE-EAST 16:43 → ICU WEST 18:56 → TELE-CENTR 03-20 18:12 → ICU CENTRL 03-27 04:50 → ICU WEST 03-27 11:06
PROVIDERS: ADMIT Registered Nurse; ATTEND Internal Medicine
PROC: 5A1945Z Respiratory Ventilation, 24-96 Consecutive Hours (ICD-10-PCS; 2022-03-15)
PROC: 0BH17EZ Insertion of Endotracheal Airway into Trachea, Via Natural or Artificial Opening (ICD-10-PCS; 2022-03-15)
PROC: 03HY32Z Insertion of Monitoring Device into Upper Artery, Percutaneous Approach (ICD-10-PCS; 2022-03-16)
PROC: 02HV33Z Insertion of Infusion Device into Superior Vena Cava, Percutaneous Approach (ICD-10-PCS; 2022-03-16)
PROC: B548ZZA Ultrasonography of Superior Vena Cava, Guidance (ICD-10-PCS; 2022-03-16)
PROC: 4A133B1 Monitoring of Arterial Pressure, Peripheral, Percutaneous Approach (ICD-10-PCS; 2022-03-16)
PROC: 4A133J1 Monitoring of Arterial Pulse, Peripheral, Percutaneous Approach (ICD-10-PCS; 2022-03-16)
PROC: 5A1D70Z Performance of Urinary Filtration, Intermittent, Less than 6 Hours Per Day (ICD-10-PCS; 2022-03-17)
PROC: 5A1D70Z Performance of Urinary Filtration, Intermittent, Less than 6 Hours Per Day (ICD-10-PCS; 2022-03-19)
PROC: 5A1D70Z Performance of Urinary Filtration, Intermittent, Less than 6 Hours Per Day (ICD-10-PCS; 2022-03-21)
PROC: 02HV33Z Insertion of Infusion Device into Superior Vena Cava, Percutaneous Approach (ICD-10-PCS; 2022-03-22)
PROC: B548ZZA Ultrasonography of Superior Vena Cava, Guidance (ICD-10-PCS; 2022-03-22)
PROC: 5A1D70Z Performance of Urinary Filtration, Intermittent, Less than 6 Hours Per Day (ICD-10-PCS; 2022-03-23)
PROC: 5A1D70Z Performance of Urinary Filtration, Intermittent, Less than 6 Hours Per Day (ICD-10-PCS; 2022-03-25)
PROC: 5A1955Z Respiratory Ventilation, Greater than 96 Consecutive Hours (ICD-10-PCS; 2022-03-27)
PROC: 0BH17EZ Insertion of Endotracheal Airway into Trachea, Via Natural or Artificial Opening (ICD-10-PCS; 2022-03-27)
PROC: 5A1D70Z Performance of Urinary Filtration, Intermittent, Less than 6 Hours Per Day (ICD-10-PCS; 2022-03-28)
PROC: 5A1D70Z Performance of Urinary Filtration, Intermittent, Less than 6 Hours Per Day (ICD-10-PCS; 2022-03-30)
PROC: 5A1D70Z Performance of Urinary Filtration, Intermittent, Less than 6 Hours Per Day (ICD-10-PCS; 2022-04-01)
PROC: 02HV33Z Insertion of Infusion Device into Superior Vena Cava, Percutaneous Approach (ICD-10-PCS; 2022-04-03)
PROC: B548ZZA Ultrasonography of Superior Vena Cava, Guidance (ICD-10-PCS; 2022-04-03)
PROC: 5A1D70Z Performance of Urinary Filtration, Intermittent, Less than 6 Hours Per Day (ICD-10-PCS; 2022-04-03)
PROC: 5A1D70Z Performance of Urinary Filtration, Intermittent, Less than 6 Hours Per Day (ICD-10-PCS; 2022-04-05)
PROC: 5A1D70Z Performance of Urinary Filtration, Intermittent, Less than 6 Hours Per Day (ICD-10-PCS; 2022-04-08)
PROC: 5A1D70Z Performance of Urinary Filtration, Intermittent, Less than 6 Hours Per Day (ICD-10-PCS; 2022-04-10)
PROC: 30233K1 Transfusion of Nonautologous Frozen Plasma into Peripheral Vein, Percutaneous Approach (ICD-10-PCS; 2022-04-11)
PROC: 0B110F4 Bypass Trachea to Cutaneous with Tracheostomy Device, Open Approach (ICD-10-PCS; principal; 2022-04-11 10:22)
PROC: 5A1D70Z Performance of Urinary Filtration, Intermittent, Less than 6 Hours Per Day (ICD-10-PCS; 2022-04-12)
PROC: 5A1D70Z Performance of Urinary Filtration, Intermittent, Less than 6 Hours Per Day (ICD-10-PCS; 2022-04-15)
PROC: 5A1D70Z Performance of Urinary Filtration, Intermittent, Less than 6 Hours Per Day (ICD-10-PCS; 2022-04-17)
PROC: 30233N1 Transfusion of Nonautologous Red Blood Cells into Peripheral Vein, Percutaneous Approach (ICD-10-PCS; 2022-04-18)
PROC: 5A1D70Z Performance of Urinary Filtration, Intermittent, Less than 6 Hours Per Day (ICD-10-PCS; 2022-04-19)
PROC: 5A1D70Z Performance of Urinary Filtration, Intermittent, Less than 6 Hours Per Day (ICD-10-PCS; 2022-04-22)
PROC: 5A1D70Z Performance of Urinary Filtration, Intermittent, Less than 6 Hours Per Day (ICD-10-PCS; 2022-04-24)
PROC: 5A1D70Z Performance of Urinary Filtration, Intermittent, Less than 6 Hours Per Day (ICD-10-PCS; 2022-04-26)
PROC: 5A1D70Z Performance of Urinary Filtration, Intermittent, Less than 6 Hours Per Day (ICD-10-PCS; 2022-04-29)
DX: A41.51 Sepsis due to Escherichia coli [E. coli] (principal); R65.21 Severe sepsis with septic shock; E43 Unspecified severe protein-calorie malnutrition; E11.10 Type 2 diabetes mellitus with ketoacidosis without coma; J15.211 Pneumonia due to Methicillin susceptible Staphylococcus aureus; A04.72 Enterocolitis due to Clostridium difficile, not specified as recurrent; I13.2 Hypertensive heart and chronic kidney disease with heart failure and with stage 5 chronic kidney disease, or end stage renal disease; J15.5 Pneumonia due to Escherichia coli; J96.01 Acute respiratory failure with hypoxia; I27.20 Pulmonary hypertension, unspecified; N18.6 End stage renal disease; I48.91 Unspecified atrial fibrillation; D63.1 Anemia in chronic kidney disease; K75.81 Nonalcoholic steatohepatitis (NASH); E11.65 Type 2 diabetes mellitus with hyperglycemia; J98.11 Atelectasis; E66.9 Obesity, unspecified; F41.9 Anxiety disorder, unspecified; R25.1 Tremor, unspecified; K74.60 Unspecified cirrhosis of liver; R16.0 Hepatomegaly, not elsewhere classified; E87.6 Hypokalemia; E11.22 Type 2 diabetes mellitus with diabetic chronic kidney disease; E11.649 Type 2 diabetes mellitus with hypoglycemia without coma; F17.210 Nicotine dependence, cigarettes, uncomplicated; G40.409 Other generalized epilepsy and epileptic syndromes, not intractable, without status epilepticus; I50.9 Heart failure, unspecified; J44.0 Chronic obstructive pulmonary disease with (acute) lower respiratory infection; Z79.899 Other long term (current) drug therapy; Z99.11 Dependence on respirator [ventilator] status; Z68.27 Body mass index [BMI] 27.0-27.9, adult; Z91.15 Patient's noncompliance with renal dialysis; Z99.2 Dependence on renal dialysis; Z79.82 Long term (current) use of aspirin; Z91.81 History of falling
CPT/HCPCS: 36415; 36569; 36600; 70450; 70551; 71045; 74178; 76705; 76856; 80048; 80053; 80061; 80074; 80185; 80202; 82105; 82140; 82270; 82378; 82533; 82565; 82607; 82746; 82805; 82962; 83036; 83540; 83550; 83690; 83735; 83880; 84100; 84132; 84443; 84484; 85007; 85014; 85018; 85025; 85027; 85045; 85610; 85730; 86301; 86704; 86706; 86708; 86803; 86850; 86900; 86901; 86920; 87040; 87070; 87077; 87081; 87086; 87088; 87186; 87205; 87340; 87493; 90935; 92610; 93005; 93306; 94002; 94003; 94640; 95819; 96372; 96374; 96375; 97110; 97116; 97163; 97530; A4605; C9113; G0378; J0330; J0690; J1335; J1642; J1815; J2185; J2250; J2405; J2543; J2704; J3430; J3480; J3490; J7060; P9047